=== PATIENT | female | born 1945 | race Caucasian/White ===

== ENCOUNTER → 2016-04-26 | Outpatient (CLI) | payer MEDICARE | LOC: SP 13:05 | PROVIDERS: ATTEND Registered Nurse | DX: M25.561 Pain in right knee (principal) | CPT/HCPCS: 93971 ==

== ENCOUNTER → 2016-06-21 | Outpatient (CLI) | payer MEDICARE | LOC: RAD 06:38 | PROVIDERS: ATTEND Physician Assistant | DX: M25.561 Pain in right knee (principal) ==

== ENCOUNTER → 2016-11-08 | Outpatient (CLI) | payer MEDICARE ==
--- NOTE | 2016-11-08 17:14 | WOMENS IMAGING REPORT ---
EXAM DESCRIPTION: BILAT SCREENING MAMMO W/CAD COMPLETED DATE/TIME: 11/08/2016 1:37 pm REASON FOR STUDY: ROUTINE SCREENING; Z12.31 Z12.31 ENCNTR SCREEN MAMMOGRAM FOR MALIGNANT NEOPLASM O F GT COMPARISON: 2010 to 2015 TECHNIQUE: Standard craniocaudal and mediolateral oblique views of each breast recorded using [employer] acquisition. LIMITATIONS: None. FINDINGS: No masses, calcifications or architectural distortion. No areas of suspicion. Read with the assistance of CAD. .[facility] - R2 Cenova Version 1.3 .[facility] - R2 Cenova Version 1.3 .[facility] - R2 Cenova Version 2.4 .[facility] – [place] - R2 Cenova Version 2.4 .[facility] - R2 [employer] Version 9.2 IMPRESSION: NORMAL MAMMOGRAM. BIRADS 1. BREAST DENSITY: b. There are scattered areas of fibroglandular density. BIRAD: 1 NEGATIVE RECOMMENDATION: ROUTINE SCREENING COMMENT: The patient has been notified of the results by letter per SA requirements. Additional no tification policies are in place for contacting patient with suspicious or incomplete findings. Quality ID #[id number]: The [employer] recommends an annual screening mammogram for women aged 40 years or over. This facility utilizes a reminder system to ensure that all patients receive reminder letters, and/or direct phone calls for appointments. This includes reminders for routine scr eening mammograms, diagnostic mammograms, or other Breast Imaging Interventions when appropriate. Th is patient will be placed in the appropriate reminder system. The [employer] (ACR) has developed recommendations for screening MRI of the breast s in certain patient populations, to be used in conjunction with mammography. Breast MRI surveillanc e may be appropriate for women with more than 20% lifetime risk of developing breast cancer as deter mined by genetic testing, significant family history of the disease, or history of mantle radiation f or Hodgkins Disease. ACR Practice Guidelines 2008. TECHNICAL DOCUMENTATION: FINDING NUMBER: (1) ASSESSMENT: (1) JOB ID: [id number] [employer]- All Rights Reserved
== END ==
LOC: WI 13:26
PROVIDERS: ATTEND Registered Nurse
DX: Z12.31 Encounter for screening mammogram for malignant neoplasm of breast (principal)
CPT/HCPCS: 77067; G0202

== ENCOUNTER 2017-04-09 17:24 | Emergency (ER) | payer MEDICARE ==
--- NOTE | 2017-04-09 18:26 | ER Document Report ---
ED GI/ - General Stated Complaint: POSSIBLE ALLERGIC REACTION Mode of Arrival: Stretcher Information source: Patient, Relative TRAVEL OUTSIDE OF THE [place] IN LAST 30 DAYS: No - HPI Notes: 04/10/17 01:07 71-year-old lady with past medical history of Parkinson's, anemia who presented today for evaluation of nausea, vomiting as well as diarrhea that started this morning. She had multiple episodes of emesis, nonbloody, nonbilious. Patient also has multiple episodes of watery diarrhea associated with her symptoms. Upon arrival patient appears to be tachycardic and slightly hypotensive. Patient denies any chest pain, shortness of breath or palpitations. No prior history of abdominal surgeries. - Related Data Allergies/Adverse Reactions: No Known Allergies Allergy (Unverified 04/22/14 13:48) Past Medical History - Social History Smoking Status: Unknown if Ever Smoked Family History: Reviewed & Not Pertinent - Past Medical History Cardiac Medical History: Reports: Hx DVT - Right lower extremity, Hx Hypercholesterolemia, Hx Hypertension Denies: Hx Congestive Heart Failure, Hx Heart Attack, Hx Pulmonary Embolism Pulmonary Medical History: Denies: Hx Asthma, Hx COPD, Hx Sleep Apnea Neurological Medical History: Denies: Hx Seizures Endocrine Medical History: Denies: Hx Diabetes Mellitus Type 1, Hx Diabetes Mellitus Type 2, Hx Hyperthyroidism, Hx Hypothyroidism GI Medical History: Reports: Hx Gastroesophageal Reflux Disease - Mild. Denies : Hx Cirrhosis, Hx Hepatitis Musculoskeltal Medical History: Reports Hx Arthritis Psychiatric Medical History: Denies: Hx Depression Infectious Medical History: Denies: Hx Hepatitis Past Surgical History: Reports: Hx Cholecystectomy, Hx Hysterectomy, Hx Tonsillectomy - Immunizations Hx Diphtheria, Pertussis, Tetanus Vaccination: Yes Review of Systems - Review of Systems Notes: REVIEW OF SYSTEMS: CONSTITUTIONAL: -fevers, -chills EENT: -eye pain, -difficulty swallowing, -nasal congestion CARDIOVASCULAR: -chest pain, -syncope. RESPIRATORY: -cough, -SOB GASTROINTESTINAL: -abdominal pain, + nausea, +vomiting, +diarrhea GENITOURINARY: -dysuria, -hematuria MUSCULOSKELETAL: -back pain, -neck pain SKIN: -rash or skin lesions. HEMATOLOGIC: -easy bruising or bleeding. LYMPHATIC: -swollen, enlarged glands. NEUROLOGICAL: -altered mental status or loss of consciousness, -headache, - neurologic symptoms PSYCHIATRIC: -anxiety, -depression. ALL OTHER SYSTEMS REVIEWED AND NEGATIVE. Physical Exam - Vital signs Vitals: Temp Pulse Resp BP Pulse Ox 97.9 F 82 18 80/55 L 95 04/09/17 18:09 04/09/17 18:09 04/09/17 18:09 04/09/17 18:09 04/09/17 18:09 - Notes Notes: Reviewed vital signs and nursing note as charted by RN. CONSTITUTIONAL: Alert and orientedand responds appropriately to questions HEAD: Normocephalic; atraumatic EYES: PERRL; Conjunctivae clear, sclerae non-icteric ENT: normal nose; no rhinorrhea; dry mucous membranes; pharynx without lesions noted NECK: Supple without meningismus; non-tender; no cervical lymphadenopathy, no masses CARD: Tachycardia no murmurs, no clicks, no rubs, no gallops; symmetric distal pulses RESP: Normal chest excursion without splinting or tachypnea; breath sounds clear and equal bilaterally ABD/GI: Normal bowel sounds; non-distended; soft, BACK: The back appears normal and is non-tender to palpation EXT: Normal ROM in all joints; non-tender to palpation; no cyanosis, no effusions, no edema SKIN: Normal color for age and race; warm; dry; good turgor; capillary refill < 2 seconds; no acute lesions noted NEURO: .Cranial nerves 3-12 intact. Motor strength 5/5 bilaterally. Sensation intact to touch bilaterally. No pronator drift. Patient has parkinsonian features PSYCH: The patient's mood and manner are appropriate. Grooming and personal hygiene are appropriate. Course - Re-evaluation Re-evalutation: 71-year-old lady with history of Parkinson's presented today for evaluation of nausea, vomiting, diarrhea Differential diagnoses includes dehydration, electrolyte abnormalities, acute kidney injury, intra-abdominal infection, small bowel obstruction Will obtain basic lab work including CBC, CMP, urinalysis We will start patient on IV fluids We will give patient pain control with hydromorphone, nausea control Zofran Reassess patient 04/09/17 22:22 Patient is improving Noted acute kidney injury today as well as worsening anemia We will continue with IV fluids Patient also has leukocytosis, will obtain CT scan to rule out intra-abdominal infection versus obstruction Reassess patient 04/10/17 01:09 Patient feels much better, tachycardia has improved Patient noted to have anemia that has been getting slightly worse, patient's hemoglobin is 7.5, patient does not need transfusion at present time CT scan without any obstruction or infection Discussed results of imaging, lab work and urinalysis with patient and family, agree with disposition today, close follow-up with primary care doctor for reassessment of her symptoms Family agree with disposition today - Vital Signs Vital signs: Temp Pulse Resp BP Pulse Ox 97.9 F 82 22 H 125/73 96 04/09/17 18:09 04/09/17 18:09 04/09/17 23:07 04/09/17 23:07 04/09/17 23:07 - Laboratory Result Diagrams: 04/09/17 20:32 04/09/17 19:45 Laboratory results interpreted by me: 04/09/17 04/09/17 19:45 20:32 WBC 13.8 H RBC 2.97 L Hgb 7.5 L Hct 23.5 L MCV 79 L MCH 25.3 L RDW 17.0 H Seg Neutrophils % 81.3 H Lymphocytes % 12.8 L Absolute Neutrophils 11.2 H BUN 22 H Creatinine 1.37 H Est GFR ( Amer) 46 L Est GFR (Non-Af Amer) 38 L Direct Bilirubin 0.6 H ALT 7 L - Diagnostic Test Radiology reviewed: Image reviewed - EXAM DESCRIPTION: CT ABD/PELVIS NO ORAL OR IV CLINICAL HISTORY: 71 years Female, vomiting, abdominal pain COMPARISON: 3.2.15, report only. MRI, abdomen,3.2.15, report only. TECHNIQUE : No contrast. Coronal and sagittal reformat. This exam was performed according to our departmental dose-optimization program, which includes automated exposure control, adjustment of the mA and/or kV according to patient size and/or use of iterative reconstruction technique. FINDINGS: No acute findings. No free fluid. 3.9 cm hiatal hernia. Small bibasilar dependent atelectasis. Colonic diverticulosis. 3.4 cm right adrenal adenoma, noncontrast CT density 12 Hounsfield units. Small left inguinal fat only hernia. 2 cm umbilical fat only hernia. Cholecystectomy clips. 1.5 cm in sclerotic lesion of the right iliac wing and 1.1 cm sclerotic lesion of the left superior pubic ramus, likely enostosis. Unenhanced inferior chest, intra -abdominal/intrapelvic structures, and musculoskeleton appear otherwise grossly intact. Impression: No acute findings. Dictated by: BRIAN BALL MD [id number] CC: KELLY WALSH MD Critical Care Note - Critical Care Note Total time excluding time spent on procedures (mins): 35 Comments: Critical Care Time: 35 minutes Critical care provider statement: Critical care time was exclusive of: Separately billable procedures and treating other patients and teaching time Critical care was time spent personally by me on the following activities: Blood draw for specimens, development of treatment plan with patient or surrogate, evaluation of patient's response to treatment, examination of patient , obtaining history from patient or surrogate, ordering and performing treatments and interventions, ordering and review of laboratory studies, ordering and review of radiographic studies, pulse oximetry, re-evaluation of patient's condition and review of old charts I assumed direction of critical care for this patient from another provider in my specialty: no Discharge - Discharge Clinical Impression: JENNIFER (acute kidney injury), Dehydration, Nausea and vomiting, Diarrhea, Anemia Condition: Stable Disposition: HOME, SELF-CARE Instructions: Diarrhea, Nonspecific ([facility]), Vomiting ([facility]), Anemia ([facility]) Additional Instructions: You have been diagnosed today with nausea, vomiting as well as diarrhea Please take medications as prescribed Please follow-up with your doctor to recheck your blood counts, you have been noted to have anemia today Please come back if there worsening abdominal pain, nausea vomiting or diarrhea Prescriptions: Loperamide HCl [Loperamide] 2 mg PO Q4 #30 capsule Ondansetron [Zofran Odt 4 mg Tablet] 1 - 2 tab PO Q4H PRN #15 tab.rapdis PRN Reason: For Nausea/Vomiting Referrals: ROBB MILLARD MD [Primary Care Provider] - Follow up as needed
[2017-04-09] MEDS ORDERED: ONDANSETRON HCL INJ/PF 4 MG/2 ML SDV IV ONE (18:28)
[2017-04-09] MEDS ORDERED: MORPHINE SULFATE 10 MG/ML INJ IV ONE (18:28)
[2017-04-09] MEDS: NORMAL SALINE 1000 ML 1,000 ML IV PRN ×2 (19:54→20:28)
[2017-04-09] MEDS ORDERED: HYDROMORPHONE HCL INJ/PF 2 MG/ML AMPULE IV ONE (20:16)
[2017-04-09 20:30] LABS: ALANINE AMINOTRANSFERASE 7 U/L (9-52); ALBUMIN 3.8 g/dL (3.5-5.0); ALKALINE PHOSPHATASE 106 U/L (38-126); ANION GAP 10 (5-19); ASPARTATE AMINO TRANSFERASE 32 U/L (14-36); BILIRUBIN,DIRECT 0.6 mg/dL (0.0-0.4); BILIRUBIN,TOTAL 0.8 mg/dL (0.2-1.3); BLOOD UREA NITROGEN 22 mg/dL (7-20); CALCIUM 8.9 mg/dL (8.4-10.2); CARBON DIOXIDE 25 mmol/L (22-30); CHLORIDE 104 mmol/L (98-107); GLUCOSE 102 mg/dL (75-110); LIPASE 84.5 U/L (23-300); POTASSIUM 4.1 mmol/L (3.6-5.0); SODIUM 139.1 mmol/L (137-145); TOTAL PROTEIN 6.8 g/dL (6.3-8.2)
[2017-04-09 20:53] LABS: ABSOLUTE LYMPHOCYTES (AUTO) 1.8 10^3/uL (0.5-4.7); ABSOLUTE MONOCYTES (AUTO) 0.8 10^3/uL (0.1-1.4); ABSOLUTE NEUT (AUTO) 11.2 10^3/uL (1.7-8.2); BASOPHILS % (AUTO) 0.3 % (0-2); EOSINOPHILS % (AUTO) 0.1 % (0-6); HEMATOCRIT 23.5 % (36.0-47.0); LYMPHOCYTES % (AUTO) 12.8 % (13-45); MEAN CORPUSCULAR HEMOGLOBIN 25.3 pg (27.0-33.4); MEAN CORPUSCULAR VOLUME 79 fl (80-97); MONOCYTES % (AUTO) 5.5 % (3-13); PLATELET COUNT 287 10^3/uL (150-450); RED BLOOD COUNT 2.97 10^6/uL (3.72-5.28); SEGMENTED NEUTROPHILS % (AUTO) 81.3 % (42-78); TOTAL CELLS COUNTED % (AUTO) 100 %; WHITE BLOOD COUNT 13.8 10^3/uL (4.0-10.5)
[2017-04-09 21:05] LABS: HEMOGLOBIN 7.5 g/dL (12.0-15.5)
--- NOTE | 2017-04-10 00:21 | RADIOLOGY REPORT (SQ) ---
EXAM DESCRIPTION: CT ABD/PELVIS NO ORAL OR IV CLINICAL HISTORY: 71 years Female, vomiting, abdominal pain COMPARISON: 3.04.07, report only. MRI, abdomen,3.04.07, report only. TECHNIQUE: No contrast. Coronal and sagittal reformat. This exam was performed according to our departmental dose-optimization program, which includes automated exposure control, adjustment of the mA and/or kV according to patient size and/or use of iterative reconstruction technique. FINDINGS: No acute findings. No free fluid. 3.9 cm hiatal hernia. Small bibasilar dependent atelectasis. Colonic diverticulosis. 3.4 cm right adrenal adenoma, noncontrast CT density 12 Hounsfield units. Small left inguinal fat only hernia. 2 cm umbilical fat only hernia. Cholecystectomy clips. 1.5 cm in sclerotic lesion of the right iliac wing and 1.1 cm sclerotic lesion of the left superior pubic ramus, likely enostosis. Unenhanced inferior chest, intra-abdominal/intrapelvic structures, and musculoskeleton appear otherwise grossly intact. Impression: No acute findings.
[2017-04-10 01:31] VITALS: BP 122/64
== END 2017-04-10 01:31 | disposition home or self-care (01) ==
LOC: ER 17:24
DX: N17.9 Acute kidney failure, unspecified (principal); E86.0 Dehydration; D64.9 Anemia, unspecified; R11.2 Nausea with vomiting, unspecified; R19.7 Diarrhea, unspecified; E78.00 Pure hypercholesterolemia, unspecified; I10 Essential (primary) hypertension; Z86.718 Personal history of other venous thrombosis and embolism; Z90.49 Acquired absence of other specified parts of digestive tract; Z90.710 Acquired absence of both cervix and uterus
CPT/HCPCS: 99291; 96361; 96374; 96375; 36415; 83690; 85025; 80053; 74176; J1170; J2405; J7030

== ENCOUNTER 2017-07-10 04:10 | Emergency (ER) | payer MEDICARE ==
[2017-07-10] MEDS ORDERED: LORAZEPAM INJ 2 MG/1 ML VIAL IV ONE (06:14)
[2017-07-10 06:21] LABS: ABSOLUTE BASOPHILS # (AUTO) 0.1 10^3/uL (0.0-0.2); ABSOLUTE EOSINOPHILS # (AUTO) 0.1 10^3/uL (0.0-0.6); ABSOLUTE LYMPHOCYTES (AUTO) 2.2 10^3/uL (0.5-4.7); ABSOLUTE MONOCYTES (AUTO) 0.6 10^3/uL (0.1-1.4); ABSOLUTE NEUT (AUTO) 6.8 10^3/uL (1.7-8.2); BASOPHILS % (AUTO) 0.6 % (0-2); EOSINOPHILS % (AUTO) 0.8 % (0-6); HEMOGLOBIN 10.1 g/dL (12.0-15.5); LYMPHOCYTES % (AUTO) 22.8 % (13-45); MEAN CORPUSCULAR HEMOGLOBIN 28.2 pg (27.0-33.4); MEAN CORPUSCULAR HGB CONC 33.5 g/dL (32.0-36.0); MEAN CORPUSCULAR VOLUME 84 fl (80-97); MONOCYTES % (AUTO) 5.7 % (3-13); PLATELET COUNT 247 10^3/uL (150-450); RED BLOOD COUNT 3.56 10^6/uL (3.72-5.28); RED CELL DISTRIBUTION WIDTH 19.4 % (11.5-14.0); SEGMENTED NEUTROPHILS % (AUTO) 70.1 % (42-78); TOTAL CELLS COUNTED % (AUTO) 100 %; WHITE BLOOD COUNT 9.7 10^3/uL (4.0-10.5)
--- NOTE | 2017-07-10 06:22 | ER Document Report ---
ED Dizziness/Weakness - General Mode of Arrival: Medic Information source: Patient TRAVEL OUTSIDE OF THE [place] IN LAST 30 DAYS: No <CARROLL NI - Last Filed: 07/10/17 06:24> <JIMMIE MENDEZ - Last Filed: 07/10/17 10:35> - General Chief Complaint: General Weakness Stated Complaint: GENERAL WEAKNESS Time Seen by Provider: 07/10/17 06:03 Notes: Patient is a 79-year-old female with a pertinent medical history of Parkinson's disease and restless leg syndrome who presents to the emergency department today with complaints of generalized weakness with associated leg swelling. Patient states yesterday and at some point overnight last night she took extra Lasix to try to get the fluid off. Patient states this did remove quite a bit of fluid but she still has leg pain secondary to her restless leg syndrome. ( CARROLL NI) - Related Data Allergies/Adverse Reactions: No Known Allergies Allergy (Unverified 04/22/14 13:48) Past Medical History - General Information source: Patient - Social History Smoking Status: Never Smoker Cigarette use (# per day): No Chew tobacco use (# tins/day): No Frequency of alcohol use: None Drug Abuse: None Lives with: Spouse/Significant other Family History: Reviewed & Not Pertinent Patient has suicidal ideation: No Patient has homicidal ideation: No - Past Medical History Cardiac Medical History: Reports: Hx DVT - Right lower extremity, Hx Hypercholesterolemia, Hx Hypertension Neurological Medical History: Reports: Other - Parkinsons Disease GI Medical History: Reports: Hx Gastroesophageal Reflux Disease - Mild Musculoskeltal Medical History: Reports Hx Arthritis Psychiatric Medical History: Reports: Hx Depression Past Surgical History: Reports: Hx Cholecystectomy, Hx Hysterectomy, Hx Tonsillectomy - Immunizations Hx Diphtheria, Pertussis, Tetanus Vaccination: Yes <CARROLL NI - Last Filed: 07/10/17 06:24> Review of Systems - Review of Systems Constitutional: See HPI, Weakness - generalized EENT: No symptoms reported Cardiovascular: No symptoms reported Respiratory: No symptoms reported Gastrointestinal: No symptoms reported Genitourinary: No symptoms reported Female Genitourinary: No symptoms reported Musculoskeletal: See HPI, Leg swelling - bilateral Skin: No symptoms reported Hematologic/Lymphatic: No symptoms reported Neurological/Psychological: No symptoms reported -: Yes All other systems reviewed and negative <CARROLL NI - Last Filed: 07/10/17 06:24> Physical Exam <CARROLL NI - Last Filed: 07/10/17 06:24> <JIMMIE MENDEZ - Last Filed: 07/10/17 10:35> - Vital signs Vitals: Temp Pulse Resp BP Pulse Ox 97.4 F 88 18 154/61 H 99 07/10/17 04:26 07/10/17 04:26 07/10/17 04:26 07/10/17 04:26 07/10/17 04:26 - Notes Notes: Physical Exam: General: Alert, appears age appropriate. HEENT: Normocephalic. Atraumatic. PERRL. Extraocular movements intact. Oropharynx clear. Neck: Supple. Non-tender. Respiratory: No respiratory distress. Clear and equal breath sounds bilaterally. Cardiovascular: Regular rate and rhythm. Abdominal: Obese. Non-tender. No distension. Normal Bowel Sounds. Back: Non-tender. No deformity or step off. Extremities: Moves all four extremities. Upper extremities: Normal inspection. Normal ROM. Lower extremities: 1+ pitting edema at the feet bilaterally. Normal ROM. Neurological: Normal cognition. AAOx4. Normal speech. Psychological: Normal affect. Normal Mood. Skin: Warm. Dry. Normal color. (CARROLL NI) Course - Laboratory Result Diagrams: 07/10/17 06:10 07/10/17 06:10 <CARROLL NI - Last Filed: 07/10/17 06:24> - Laboratory Result Diagrams: 07/10/17 06:10 07/10/17 06:10 <JIMMIE MENDEZ - Last Filed: 07/10/17 10:35> - Vital Signs Vital signs: Temp Pulse Resp BP Pulse Ox 97.4 F 88 18 154/61 H 99 07/10/17 04:26 07/10/17 04:26 07/10/17 04:26 07/10/17 04:26 07/10/17 04:26 - Laboratory Laboratory results interpreted by me: 07/10/17 07/10/17 07/10/17 05:05 06:10 06:10 RBC 3.56 L Hgb 10.1 L Hct 30.0 L RDW 19.4 H Sodium 149.6 H Potassium 3.4 L Chloride 109 H Magnesium 1.0 L* Total Protein 6.1 L Urine Blood SMALL H Discharge <CARROLL NI - Last Filed: 07/10/17 06:24> <JIMMIE MENDEZ - Last Filed: 07/10/17 10:35> - Discharge Clinical Impression: Peripheral edema, Hypomagnesemia, Hypokalemia, Restless leg syndrome, Parkinsons disease Iron deficiency anemia Qualifiers: Iron deficiency anemia type: unspecified iron deficiency Qualified Code(s): D50.9 - Iron deficiency anemia, unspecified Condition: Stable Disposition: HOME, SELF-CARE Additional Instructions: Your magnesium levels and potassium levels were both low. This is probably partly due to the diuretics you are taking. The low magnesium can contribute to worsening weakness in your legs. Take the magnesium supplements as prescribed. Increase potassium in your diet, such as eating a banana every day. Elevate your feet as much as possible to help reduce the swelling. Follow-up with your doctor this week to recheck your magnesium and potassium levels. RETURN TO THE EMERGENCY ROOM IF ANY NEW OR WORSENING SYMPTOMS. Prescriptions: Magnesium Oxide [Mag-Ox 400 mg Tablet] 400 mg PO BID #10 tab Referrals: ROBB MILLARD MD [Primary Care Provider] - Follow up in 3-5 days Scribe Attestation: 07/10/17 07:16 I personally performed the services described in the documentation, reviewed and edited the documentation which was dictated to the scribe in my presence, and it accurately records my words and actions. (JIMMIE MENDEZ) Scribe Documentation - Scribe Written by Jhon:: Jhon Diallo, [id number] acting as scribe for :: Amado <CARROLL NI - Last Filed: 07/10/17 06:24>
[2017-07-10 06:24] LABS: APPEARANCE,URINE CLEAR; BILIRUBIN,URINE NEGATIVE (NEGATIVE); COLOR,URINE STRAW; GLUCOSE, URINE NEGATIVE (NEGATIVE); KETONES,URINE NEGATIVE (NEGATIVE); LEUKOCYTE ESTERASE,URINE NEGATIVE (NEGATIVE); NITRITE,URINE NEGATIVE (NEGATIVE); PROTEIN,URINE NEGATIVE (NEGATIVE); URINE SPECIFIC GRAVITY 1.008; UROBILINOGEN,URINE NEGATIVE mg/dL (<2.0)
[2017-07-10 06:48] LABS: ALANINE AMINOTRANSFERASE 20 U/L (9-52); ALBUMIN 3.6 g/dL (3.5-5.0); ALKALINE PHOSPHATASE 88 U/L (38-126); ANION GAP 15 (5-19); ASPARTATE AMINO TRANSFERASE 18 U/L (14-36); BILIRUBIN,DIRECT 0.2 mg/dL (0.0-0.4); BILIRUBIN,TOTAL 0.5 mg/dL (0.2-1.3); BLOOD UREA NITROGEN 19 mg/dL (7-20); CALCIUM 9.6 mg/dL (8.4-10.2); CARBON DIOXIDE 26 mmol/L (22-30); CHLORIDE 109 mmol/L (98-107); GLUCOSE 99 mg/dL (75-110); POTASSIUM 3.4 mmol/L (3.6-5.0); SODIUM 149.6 mmol/L (137-145); TOTAL PROTEIN 6.1 g/dL (6.3-8.2)
[2017-07-10] MEDS ORDERED: MAGNESIUM SULFATE INJ 8 MEQ/2 ML IV ONE (07:00)
[2017-07-10] MEDS ORDERED: POTASSIUM CHLORIDE 20 MEQ/15 ML UDCUP PO ONE (07:01)
[2017-07-10 11:11] VITALS: BP 104/69
== END 2017-07-10 10:50 | disposition home or self-care (01) ==
LOC: ER 04:10
DX: R60.0 Localized edema (principal); E83.42 Hypomagnesemia; E87.6 Hypokalemia; G25.81 Restless legs syndrome; G20 Parkinson's disease; D50.9 Iron deficiency anemia, unspecified; R53.1 Weakness; M79.89 Other specified soft tissue disorders
CPT/HCPCS: 99285; 96374; 96375; 36415; 83735; 85025; 80053; 81001; J3475; J2060; A9270

== ENCOUNTER 2017-07-12 15:45 | Emergency (ER) | payer MEDICARE ==
[2017-07-12 16:10] LABS: ABSOLUTE EOSINOPHILS # (AUTO) 0.1 10^3/uL (0.0-0.6); ABSOLUTE LYMPHOCYTES (AUTO) 2.6 10^3/uL (0.5-4.7); ABSOLUTE MONOCYTES (AUTO) 0.7 10^3/uL (0.1-1.4); ABSOLUTE NEUT (AUTO) 5.4 10^3/uL (1.7-8.2); BASOPHILS % (AUTO) 0.4 % (0-2); HEMATOCRIT 30.9 % (36.0-47.0); HEMOGLOBIN 10.2 g/dL (12.0-15.5); LYMPHOCYTES % (AUTO) 29.6 % (13-45); MEAN CORPUSCULAR HEMOGLOBIN 28.2 pg (27.0-33.4); MEAN CORPUSCULAR HGB CONC 33.1 g/dL (32.0-36.0); MEAN CORPUSCULAR VOLUME 85 fl (80-97); MONOCYTES % (AUTO) 8.2 % (3-13); PLATELET COUNT 272 10^3/uL (150-450); RED BLOOD COUNT 3.63 10^6/uL (3.72-5.28); RED CELL DISTRIBUTION WIDTH 18.8 % (11.5-14.0); SEGMENTED NEUTROPHILS % (AUTO) 60.8 % (42-78); TOTAL CELLS COUNTED % (AUTO) 100 %; WHITE BLOOD COUNT 8.9 10^3/uL (4.0-10.5)
[2017-07-12 17:00] LABS: APPEARANCE,URINE CLEAR; BILIRUBIN,URINE NEGATIVE (NEGATIVE); COLOR,URINE STRAW; GLUCOSE, URINE NEGATIVE (NEGATIVE); KETONES,URINE NEGATIVE (NEGATIVE); LEUKOCYTE ESTERASE,URINE NEGATIVE (NEGATIVE); NITRITE,URINE NEGATIVE (NEGATIVE); PROTEIN,URINE NEGATIVE (NEGATIVE); URINE SPECIFIC GRAVITY 1.009; UROBILINOGEN,URINE NEGATIVE mg/dL (<2.0)
[2017-07-12 17:42] LABS: ALANINE AMINOTRANSFERASE 16 U/L (9-52); ALBUMIN 3.5 g/dL (3.5-5.0); ALKALINE PHOSPHATASE 84 U/L (38-126); ANION GAP 9 (5-19); ASPARTATE AMINO TRANSFERASE 20 U/L (14-36); BILIRUBIN,DIRECT 0.3 mg/dL (0.0-0.4); BILIRUBIN,TOTAL 0.5 mg/dL (0.2-1.3); BLOOD UREA NITROGEN 11 mg/dL (7-20); CALCIUM 9.5 mg/dL (8.4-10.2); CARBON DIOXIDE 28 mmol/L (22-30); CHLORIDE 110 mmol/L (98-107); GLUCOSE 87 mg/dL (75-110); POTASSIUM 3.9 mmol/L (3.6-5.0); SODIUM 147.1 mmol/L (137-145); TOTAL PROTEIN 5.9 g/dL (6.3-8.2)
[2017-07-12] MEDS ORDERED: ONDANSETRON HCL INJ/PF 4 MG/2 ML SDV IV ONE (18:28)
[2017-07-12] MEDS ORDERED: MAGNESIUM SULFATE/D5W 1 GM/100 ML RTUPB IV ONE (18:29)
--- NOTE | 2017-07-12 18:37 | ER Document Report ---
ED General - General Chief Complaint: General Weakness Stated Complaint: WEAKNESS Time Seen by Provider: 07/12/17 17:55 Mode of Arrival: Ambulatory Information source: Patient, Relative Notes: 71-year-old female with Parkinson, restless leg syndrome presents with complaint of "feeling shaky inside". Patient states that earlier today after eating lunch she began to feel shaky. She states "I feel like my insides are moving". She also is complaining of worsening weakness and inability to walk. Patient states that she is usually able to get around with a walker but over the last few days this has become more difficult. She denies any falls. She was seen 2 days prior to arrival and found to have a significantly low magnesium level and low potassium. This was replenished and patient was placed on magnesium and potassium supplements. She states she has been taking these as prescribed. She currently denies headache, visual changes, chest pain, shortness of breath, abdominal pain. She does admit to nausea without vomiting. Her last bowel movement was yesterday. TRAVEL OUTSIDE OF THE [place] IN LAST 30 DAYS: No - HPI Onset: Just prior to arrival Onset/Duration: Constant Quality of pain: No pain Associated symptoms: Nausea Exacerbated by: Denies Relieved by: Denies Similar symptoms previously: Yes Recently seen / treated by doctor: Yes - Related Data Allergies/Adverse Reactions: No Known Allergies Allergy (Unverified 04/22/14 13:48) Past Medical History - General Information source: Patient, Relative, [facility] Records - Social History Smoking Status: Unknown if Ever Smoked Frequency of alcohol use: None Drug Abuse: None Lives with: Family Family History: Reviewed & Not Pertinent Patient has suicidal ideation: No Patient has homicidal ideation: No - Past Medical History Cardiac Medical History: Reports: Hx DVT - Right lower extremity, Hx Hypercholesterolemia, Hx Hypertension Denies: Hx Congestive Heart Failure, Hx Heart Attack Pulmonary Medical History: Denies: Hx Asthma, Hx COPD Neurological Medical History: Denies: Hx Seizures Endocrine Medical History: Denies: Hx Diabetes Mellitus Type 1, Hx Diabetes Mellitus Type 2 Renal/ Medical History: Denies: Hx Peritoneal Dialysis GI Medical History: Reports: Hx Gastroesophageal Reflux Disease - Mild Musculoskeltal Medical History: Reports Hx Arthritis Psychiatric Medical History: Reports: Hx Depression Past Surgical History: Reports: Hx Cholecystectomy, Hx Hysterectomy, Hx Tonsillectomy - Immunizations Hx Diphtheria, Pertussis, Tetanus Vaccination: Yes Review of Systems - Review of Systems Constitutional: Weakness. denies: Diaphoresis, Fever EENT: denies: Blurred vision Cardiovascular: denies: Chest pain, Palpitations, Heart racing, Dizziness Respiratory: denies: Short of breath Gastrointestinal: Nausea, Constipation. denies: Abdominal pain, Vomiting Genitourinary: Frequency. denies: Dysuria Female Genitourinary: No symptoms reported Musculoskeletal: Muscle pain, Leg swelling Skin: denies: Rash Hematologic/Lymphatic: denies: Easy bleeding Neurological/Psychological: Weakness. denies: Confusion, Lost consciousness -: Yes All other systems reviewed and negative Physical Exam - Vital signs Vitals: Temp Pulse Resp BP Pulse Ox 98.5 F 97 18 146/75 H 94 07/12/17 15:55 07/12/17 15:55 07/12/17 15:55 07/12/17 15:55 07/12/17 15:55 Interpretation: Normal, Hypertensive. No: Febrile - Notes Notes: PHYSICAL EXAMINATION: GENERAL: Well-appearing, well-nourished and in no acute distress. HEAD: Atraumatic, normocephalic. EYES: Pupils equal round and reactive to light, extraocular movements intact, conjunctiva are normal. ENT: Nares patent, oropharynx clear without exudates. Moist mucous membranes. NECK: Normal range of motion, supple without lymphadenopathy LUNGS: Breath sounds clear to auscultation bilaterally and equal. No wheezes rales or rhonchi. HEART: Regular rate and rhythm without murmurs ABDOMEN: Soft, nontender, nondistended abdomen. No guarding, no rebound. No masses appreciated. Female : deferred Musculoskeletal: Normal range of motion, no pitting 1+ edema bilateral. No cyanosis. NEUROLOGICAL: Tremulous. Cranial nerves grossly intact. Normal speech, normal gait. Normal sensory, motor exams PSYCH: Normal mood, normal affect. SKIN: Warm, Dry, normal turgor, no rashes or lesions noted. Course - Re-evaluation Re-evalutation: Laboratory 07/12/17 07/12/17 07/12/17 15:13 16:36 17:21 WBC 8.9 RBC 3.63 L Hgb 10.2 L Hct 30.9 L MCV 85 MCH 28.2 MCHC 33.1 RDW 18.8 H Plt Count 272 Seg Neutrophils % 60.8 Lymphocytes % 29.6 Monocytes % 8.2 Eosinophils % 1.0 Basophils % 0.4 Absolute Neutrophils 5.4 Absolute Lymphocytes 2.6 Absolute Monocytes 0.7 Absolute Eosinophils 0.1 Absolute Basophils 0.0 Sodium 147.1 H Potassium 3.9 Chloride 110 H Carbon Dioxide 28 Anion Gap 9 BUN 11 Creatinine 0.70 Est GFR ( Amer) > 60 Est GFR (Non-Af Amer) > 60 Glucose 87 Calcium 9.5 Phosphorus Magnesium Total Bilirubin 0.5 Direct Bilirubin 0.3 Neonat Total Bilirubin Not Reportable Neonat Direct Bilirubin Not Reportable Neonat Indirect Bili Not Reportable AST 20 ALT 16 Alkaline Phosphatase 84 Creatine Kinase CK-MB (CK-2) Troponin I Total Protein 5.9 L Albumin 3.5 Urine Color STRAW Urine Appearance CLEAR Urine pH 7.0 Ur Specific [place] 1.009 Urine Protein NEGATIVE Urine Glucose (UA) NEGATIVE Urine Ketones NEGATIVE Urine Blood SMALL H Urine Nitrite NEGATIVE Urine Bilirubin NEGATIVE Urine Urobilinogen NEGATIVE Ur Leukocyte Esterase NEGATIVE Urine WBC (Auto) 2 Urine RBC (Auto) 1 Urine Bacteria (Auto) TRACE Squamous Epi Cells Auto 2 Urine Mucus (Auto) RARE Urine Ascorbic Acid NEGATIVE 07/12/17 07/12/17 07/12/17 17:21 17:21 17:21 WBC RBC Hgb Hct MCV MCH MCHC RDW Plt Count Seg Neutrophils % Lymphocytes % Monocytes % Eosinophils % Basophils % Absolute Neutrophils Absolute Lymphocytes Absolute Monocytes Absolute Eosinophils Absolute Basophils Sodium Potassium Chloride Carbon Dioxide Anion Gap BUN Creatinine Est GFR ( Amer) Est GFR (Non-Af Amer) Glucose Calcium Phosphorus Magnesium 1.2 L* Total Bilirubin Direct Bilirubin Neonat Total Bilirubin Neonat Direct Bilirubin Neonat Indirect Bili AST ALT Alkaline Phosphatase Creatine Kinase 183 H CK-MB (CK-2) 3.46 Troponin I < 0.012 Total Protein Albumin Urine Color Urine Appearance Urine pH Ur Specific [place] Urine Protein Urine Glucose (UA) Urine Ketones Urine Blood Urine Nitrite Urine Bilirubin Urine Urobilinogen Ur Leukocyte Esterase Urine WBC (Auto) Urine RBC (Auto) Urine Bacteria (Auto) Squamous Epi Cells Auto Urine Mucus (Auto) Urine Ascorbic Acid 07/12/17 07/12/17 17:21 20:37 WBC RBC Hgb Hct MCV MCH MCHC RDW Plt Count Seg Neutrophils % Lymphocytes % Monocytes % Eosinophils % Basophils % Absolute Neutrophils Absolute Lymphocytes Absolute Monocytes Absolute Eosinophils Absolute Basophils Sodium Potassium Chloride Carbon Dioxide Anion Gap BUN Creatinine Est GFR ( Amer) Est GFR (Non-Af Amer) Glucose Calcium Phosphorus 4.0 Magnesium 1.8 Total Bilirubin Direct Bilirubin Neonat Total Bilirubin Neonat Direct Bilirubin Neonat Indirect Bili AST ALT Alkaline Phosphatase Creatine Kinase CK-MB (CK-2) Troponin I Total Protein Albumin Urine Color Urine Appearance Urine pH Ur Specific [place] Urine Protein Urine Glucose (UA) Urine Ketones Urine Blood Urine Nitrite Urine Bilirubin Urine Urobilinogen Ur Leukocyte Esterase Urine WBC (Auto) Urine RBC (Auto) Urine Bacteria (Auto) Squamous Epi Cells Auto Urine Mucus (Auto) Urine Ascorbic Acid 07/13/17 14:46 71-year-old female with Parkinson's presents for the second time with complaint of "feeling shaking inside". Patient was seen 2 days prior to arrival and found to have a low magnesium and potassium level. She was replenished at that time and sent home on supplements for both magnesium and potassium. Upon arrival vitals were reviewed and is afebrile, mildly hypertensive and not hypoxic. She is alert and oriented 3. Does not appear toxic or dehydrated. She is tremulous but does have a history of Parkinson's. Patient again found to have low magnesium which was replenished. Repeat magnesium levels were within normal limits. Patient also provided IV fluids. Suspect that magnesium levels are low secondary to diuretic use. Patient and family are concerned with weakness and difficulty walking. I did discuss admission with them with the goal of rehabilitation but patient and family are declining at this time. I did explain that the unsteady gait and weakness could be associated with low magnesium levels as well as Parkinson's. Patient has an upcoming appointment with her primary care physician. Patient provided the opportunity to ask questions, and express concerns. Discharge instructions discussed. Patient is agreeable with discharge home. Return indications explained and discussed with the patient who displays understanding. Patient encouraged to return to the emergency department immediately with any concerns. 07/13/17 14:47 07/13/17 14:49 - Vital Signs Vital signs: Temp Pulse Resp BP Pulse Ox 98.5 F 91 16 140/63 H 95 07/12/17 22:22 07/12/17 22:22 07/12/17 22:22 07/12/17 22:22 07/12/17 22:22 - Laboratory Result Diagrams: 07/12/17 15:13 07/12/17 17:21 Laboratory results interpreted by me: 07/12/17 07/12/17 07/12/17 15:13 16:36 17:21 RBC 3.63 L Hgb 10.2 L Hct 30.9 L RDW 18.8 H Sodium 147.1 H Chloride 110 H Magnesium Creatine Kinase Total Protein 5.9 L Urine Blood SMALL H 07/12/17 07/12/17 17:21 17:21 RBC Hgb Hct RDW Sodium Chloride Magnesium 1.2 L* Creatine Kinase 183 H Total Protein Urine Blood - EKG Interpretation by Me EKG shows normal: Sinus rhythm Rate: Normal Rhythm: NSR Discharge - Discharge Clinical Impression: Restless leg syndrome, Hypomagnesemia, Parkinsons disease Condition: Good Disposition: HOME, SELF-CARE Instructions: Parkinson's Disease ([facility]) Additional Instructions: Your laboratory testing showed that your magnesium was low again but your potassium was normal. You were administered magnesium and your repeat testing shows a normal level. I would continue the supplements she were provided but take them separately throughout the day with food. Drink plenty of fluids and follow-up with your primary care physician as already scheduled. Forms: Elevated Blood Pressure Referrals: ROBB MILLARD MD [Primary Care Provider] - 07/20/17
[2017-07-12 19:12] LABS: CREATINE KINASE MB 3.46 ng/mL (<4.55)
[2017-07-12 19:13] LABS: TROPONIN I < 0.012 ng/mL
[2017-07-12 22:25] VITALS: BP 140/63
--- NOTE | 2017-07-13 07:15 | EKG REPORT ---
SEVERITY:- OTHERWISE NORMAL ECG - SINUS RHYTHM BORDERLINE LEFT AXIS DEVIATION : Confirmed by: Saqib Younger MD 13-Jul-2017 07:14:38
== END 2017-07-12 22:22 | disposition home or self-care (01) ==
LOC: ER 15:45
DX: G25.81 Restless legs syndrome (principal); G20 Parkinson's disease; E83.42 Hypomagnesemia; R53.1 Weakness; R11.0 Nausea; E78.00 Pure hypercholesterolemia, unspecified; I10 Essential (primary) hypertension; Z86.718 Personal history of other venous thrombosis and embolism; Z90.49 Acquired absence of other specified parts of digestive tract; Z90.710 Acquired absence of both cervix and uterus
CPT/HCPCS: 93005; 99285; 96375; 96365; 36415; 82553; 82550; 83735; 84100; 85025; 80053; 81001; 84484; 93010; J3475; J2405

== ENCOUNTER 2017-07-17 12:17 | Emergency (ER) | payer MEDICARE ==
[2017-07-17] MEDS ORDERED: MORPHINE SULFATE 10 MG/ML INJ IM ONE (12:31)
--- NOTE | 2017-07-17 12:33 | ER Document Report ---
ED Medical Screen (RME) - General Chief Complaint: Urinary Problem Stated Complaint: BLADDER PROBLEM Time Seen by Provider: 07/17/17 12:26 Notes: RAPID MEDICAL EVALUATION DISCLOSURE I have seen this patient as part of a Rapid Medical Evaluation and, if applicable, placed any initially appropriate orders. The patient will be seen and fully evaluated, including a full history and physical exam, by a provider ( in Main ED or Fast Track) when a room becomes available. 71-year-old female here with complaints of dysuria hematuria suprapubic pain nausea ongoing for the past 1 week. She reports the symptoms have progressively worsened despite using Azo [id number] medication. She denies any fevers or chills. She talks about how she always gets urine infections whenever her magnesium is low. Per chart review, her last hypomagnesic episode revealed a magnesium of 1.2 EXAM CTAB RRR Mild to moderate suprapubic TTP TRAVEL OUTSIDE OF THE [place] IN LAST 30 DAYS: No - Related Data Allergies/Adverse Reactions: No Known Allergies Allergy (Verified 07/17/17 12:18) Past Medical History - Past Medical History Cardiac Medical History: Reports: Hx DVT - Right lower extremity, Hx Hypercholesterolemia, Hx Hypertension Denies: Hx Congestive Heart Failure, Hx Heart Attack Pulmonary Medical History: Denies: Hx Asthma, Hx COPD Neurological Medical History: Denies: Hx Seizures Endocrine Medical History: Denies: Hx Diabetes Mellitus Type 1, Hx Diabetes Mellitus Type 2 Renal/ Medical History: Denies: Hx Peritoneal Dialysis GI Medical History: Reports: Hx Gastroesophageal Reflux Disease - Mild Musculoskeltal Medical History: Reports Hx Arthritis Psychiatric Medical History: Reports: Hx Depression Past Surgical History: Reports: Hx Cholecystectomy, Hx Hysterectomy, Hx Tonsillectomy - Immunizations Hx Diphtheria, Pertussis, Tetanus Vaccination: Yes Physical Exam - Vital signs Vitals: Temp Pulse Resp BP Pulse Ox 97.9 F 90 18 140/67 H 94 07/17/17 12:23 07/17/17 12:23 07/17/17 12:23 07/17/17 12:23 07/17/17 12:23 Course - Vital Signs Vital signs: Temp Pulse Resp BP Pulse Ox 97.9 F 90 18 140/67 H 94 07/17/17 12:23 07/17/17 12:23 07/17/17 12:23 07/17/17 12:23 07/17/17 12:23
[2017-07-17] MEDS ORDERED: DICYCLOMINE HCL INJ 20 MG/2 ML AMPULE IM ONE (13:09)
--- NOTE | 2017-07-17 13:10 | ER Document Report ---
ED GI/ - General Chief Complaint: Urinary Problem Stated Complaint: BLADDER PROBLEM Time Seen by Provider: 07/17/17 12:26 Mode of Arrival: Ambulatory Notes: Chief complaint: 71-year-old female here with complaints of dysuria hematuria suprapubic pain nausea ongoing for the past 1 week. She reports the symptoms have progressively worsened despite using Azo [id number] medication. She denies any fevers or chills. She talks about how she always gets urine infections whenever her magnesium is low. her last hypomagnesic episode revealed a magnesium of 1.2. She is also constipated, took an enema yesterday but had only a few hardball stools. No fever chills or other constitutional symptoms History of complain:( obtained from----patient) Onset: Gradual last few days Duration: Last few days Severity: Moderate Quality: Dull Context: Constipated as well as history of kidney stones Exacerbating factor and relieving factors: None REVIEW OF SYSTEMS: CONSTITUTIONAL : Denies fever, chills, or sweats. Denies recent illness. EENT: Denies eye, ear, throat, or mouth pain or symptoms. Denies nasal or sinus congestion or discharge. Denies throat, tongue, or mouth swelling or difficulty swallowing. CARDIOVASCULAR: Denies chest pain. Denies palpitations or racing or irregular heart beat. Denies ankle edema. RESPIRATORY: Denies cough, cold, or chest congestion. Denies shortness of breath, difficulty breathing, or wheezing. GASTROINTESTINAL: Denies distention. Denies nausea, vomiting, or diarrhea. Denies blood in vomitus, stools, or per rectum. Denies black, tarry stools. GENITOURINARY: Denies difficulty urinating, painful urination, burning, frequency, blood in urine, or discharge. FEMALE GENITOURINARY: Denies vaginal bleeding, heavy or abnormal periods, irregular periods. Denies vaginal discharge or odor. MUSCULOSKELETAL: Denies back or neck pain or stiffness. Denies joint pain or swelling. SKIN: Denies rash, lesions or sores. HEMATOLOGIC : Denies easy bruising or bleeding. LYMPHATIC: Denies swollen, enlarged glands. NEUROLOGICAL: Denies confusion or altered mental status. Denies passing out or loss of consciousness. Denies dizziness or lightheadedness. Denies headache. Denies weakness or paralysis or loss of use of either side. Denies problems with gait or speech. Denies sensory loss, numbness, or tingling. Denies seizures. PSYCHIATRIC: Denies anxiety or stress. Denies depression, suicidal ideation, or homicidal ideation. ALL OTHER SYSTEMS REVIEWED AND NEGATIVE. PHYSICAL EXAMINATION: GENERAL: Well-appearing, well-nourished and mild to moderate acute distress. HEAD: Atraumatic, normocephalic. EYES: Pupils equal round and reactive to light, extraocular movements intact, conjunctiva are normal. ENT: Nares patent, oropharynx clear without exudates. Moist mucous membranes. NECK: Normal range of motion, supple without lymphadenopathy LUNGS: Breath sounds clear to auscultation bilaterally and equal. No wheezes rales or rhonchi. HEART: Regular rate and rhythm without murmurs ABDOMEN: Soft, tender over the suprapubic region, nondistended abdomen. No guarding, no rebound. No masses appreciated. Examination of genitals-deferred Musculoskeletal: Normal range of motion, no pitting or edema. No cyanosis. NEUROLOGICAL: Cranial nerves grossly intact. Normal speech, normal gait. Normal sensory, motor exams PSYCH: Normal mood, normal affect. SKIN: Warm, Dry, normal turgor, no rashes or lesions noted. Dictation was performed using [employer] voice recognition software TRAVEL OUTSIDE OF THE [place] IN LAST 30 DAYS: No - HPI Notes: 07/17/17 16:27 Dictated - Related Data Allergies/Adverse Reactions: No Known Allergies Allergy (Verified 07/17/17 12:18) Past Medical History - Social History Smoking Status: Never Smoker Chew tobacco use (# tins/day): No Frequency of alcohol use: None Drug Abuse: None Family History: Reviewed & Not Pertinent Patient has suicidal ideation: No Patient has homicidal ideation: No - Past Medical History Cardiac Medical History: Reports: Hx DVT - Right lower extremity, Hx Hypercholesterolemia, Hx Hypertension Denies: Hx Congestive Heart Failure, Hx Heart Attack Pulmonary Medical History: Denies: Hx Asthma, Hx COPD Neurological Medical History: Denies: Hx Seizures Endocrine Medical History: Denies: Hx Diabetes Mellitus Type 1, Hx Diabetes Mellitus Type 2 Renal/ Medical History: Denies: Hx Peritoneal Dialysis GI Medical History: Reports: Hx Gastroesophageal Reflux Disease - Mild Musculoskeltal Medical History: Reports Hx Arthritis Psychiatric Medical History: Reports: Hx Depression Past Surgical History: Reports: Hx Cholecystectomy, Hx Hysterectomy, Hx Tonsillectomy - Immunizations Hx Diphtheria, Pertussis, Tetanus Vaccination: Yes Review of Systems - Review of Systems Notes: Dictated Physical Exam - Vital signs Vitals: Temp Pulse Resp BP Pulse Ox 97.9 F 90 18 140/67 H 94 07/17/17 12:23 07/17/17 12:23 07/17/17 12:23 07/17/17 12:23 07/17/17 12:23 - Notes Notes: Dictated Course - Re-evaluation Re-evalutation: 07/17/17 16:28 Patient was given soapsuds enema with minimum results, subsequently discharged home given magnesium oxide - Vital Signs Vital signs: Temp Pulse Resp BP Pulse Ox 97.9 F 90 18 140/67 H 94 07/17/17 12:23 07/17/17 12:23 07/17/17 12:23 07/17/17 12:23 07/17/17 12:23 - Laboratory Result Diagrams: 07/17/17 12:50 07/17/17 12:50 Laboratory results interpreted by me: 07/17/17 07/17/17 07/17/17 12:50 12:50 13:22 WBC 10.7 H Hgb 11.4 L Hct 34.9 L RDW 18.6 H Sodium 146.4 H Carbon Dioxide 32 H Magnesium 1.1 L* Urine Nitrite POSITIVE H Urine Urobilinogen 4.0 H Discharge - Discharge Clinical Impression: Urinary tract infection Qualifiers: Urinary tract infection type: acute cystitis Hematuria presence: without hematuria Qualified Code(s): N30.00 - Acute cystitis without hematuria Constipation Qualifiers: Constipation type: slow transit constipation Qualified Code(s): K59.01 - Slow transit constipation Condition: Fair Instructions: Trimethoprim-Sulfa ([facility]), Urinary Tract Infection, Child ([facility]), Constipation ([facility]) Prescriptions: Lactulose 20 gm PO BID #120 ml Sulfamethoxazole/Trimethoprim [Bactrim Ds Tablet] 1 each PO BID #20 tablet Referrals: ROBB MILLARD MD [Primary Care Provider] - Follow up as needed
[2017-07-17] MEDS ORDERED: KETOROLAC TROMETHAMINE 60 MG/2 ML SDV IM ONE (13:11)
[2017-07-17 13:23] LABS: ALANINE AMINOTRANSFERASE 26 U/L (9-52); ALBUMIN 3.9 g/dL (3.5-5.0); ALKALINE PHOSPHATASE 90 U/L (38-126); ANION GAP 10 (5-19); ASPARTATE AMINO TRANSFERASE 25 U/L (14-36); BILIRUBIN,TOTAL 0.7 mg/dL (0.2-1.3); BLOOD UREA NITROGEN 15 mg/dL (7-20); CALCIUM 9.9 mg/dL (8.4-10.2); CARBON DIOXIDE 32 mmol/L (22-30); CHLORIDE 104 mmol/L (98-107); GLUCOSE 87 mg/dL (75-110); PHOSPHORUS 3.7 mg/dL (2.5-4.5); POTASSIUM 4.5 mmol/L (3.6-5.0); SODIUM 146.4 mmol/L (137-145); TOTAL PROTEIN 6.6 g/dL (6.3-8.2)
[2017-07-17 13:43] LABS: ABSOLUTE BASOPHILS # (AUTO) 0.1 10^3/uL (0.0-0.2); ABSOLUTE EOSINOPHILS # (AUTO) 0.1 10^3/uL (0.0-0.6); ABSOLUTE LYMPHOCYTES (AUTO) 2.9 10^3/uL (0.5-4.7); ABSOLUTE MONOCYTES (AUTO) 0.9 10^3/uL (0.1-1.4); ABSOLUTE NEUT (AUTO) 6.8 10^3/uL (1.7-8.2); BASOPHILS % (AUTO) 0.5 % (0-2); HEMATOCRIT 34.9 % (36.0-47.0); HEMOGLOBIN 11.4 g/dL (12.0-15.5); LYMPHOCYTES % (AUTO) 26.7 % (13-45); MEAN CORPUSCULAR HEMOGLOBIN 28.2 pg (27.0-33.4); MEAN CORPUSCULAR HGB CONC 32.8 g/dL (32.0-36.0); MEAN CORPUSCULAR VOLUME 86 fl (80-97); MONOCYTES % (AUTO) 8.2 % (3-13); PLATELET COUNT 303 10^3/uL (150-450); RED BLOOD COUNT 4.06 10^6/uL (3.72-5.28); RED CELL DISTRIBUTION WIDTH 18.6 % (11.5-14.0); SEGMENTED NEUTROPHILS % (AUTO) 63.6 % (42-78); TOTAL CELLS COUNTED % (AUTO) 100 %; WHITE BLOOD COUNT 10.7 10^3/uL (4.0-10.5)
[2017-07-17 13:47] LABS: APPEARANCE,URINE CLEAR; BILIRUBIN,URINE NEGATIVE (NEGATIVE); COLOR,URINE AMBER; GLUCOSE, URINE NEGATIVE (NEGATIVE); KETONES,URINE NEGATIVE (NEGATIVE); LEUKOCYTE ESTERASE,URINE NEGATIVE (NEGATIVE); NITRITE,URINE POSITIVE (NEGATIVE); PROTEIN,URINE NEGATIVE (NEGATIVE); URINE SPECIFIC GRAVITY 1.003
--- NOTE | 2017-07-17 14:21 | RADIOLOGY REPORT (SQ) ---
EXAM DESCRIPTION: KUB/ABDOMEN (SINGLE VIEW) COMPLETED DATE/TIME: 07/17/2017 2:06 pm REASON FOR STUDY: Abdominal pain COMPARISON: None. NUMBER OF VIEWS: One view. TECHNIQUE: Supine radiographic image of the abdomen acquired. LIMITATIONS: None. FINDINGS: BOWEL GAS PATTERN: Normal bowel gas pattern. No dilated loops. CALCIFICATIONS: No suspicious calcifications. SOFT TISSUES: No gross mass or suggestion of organomegaly. HARDWARE: Clips right upper quadrant. BONES: No bone lesions or fracture. OTHER: No other significant finding. IMPRESSION: NO RADIOGRAPHIC EVIDENCE FOR ACUTE ABDOMINAL DISEASE. Reading location - IP/workstation name: [email or web address]
[2017-07-17] MEDS ORDERED: MINERAL OIL 30 ML UDCUP PR ONE (15:26)
[2017-07-17] MEDS ORDERED: SULFAMETHOXAZOLE/TRIMETHOPRIM 800-160 MG TABLET PO ONE (15:26)
[2017-07-17] MEDS ORDERED: MAGNESIUM OXIDE 400 MG TABLET PO ONE (16:24)
[2017-07-17 17:01] VITALS: BP 145/64
== END 2017-07-17 16:59 | disposition home or self-care (01) ==
LOC: ER 12:17
DX: N30.00 Acute cystitis without hematuria (principal); K59.01 Slow transit constipation; R10.2 Pelvic and perineal pain; R11.0 Nausea; E78.00 Pure hypercholesterolemia, unspecified; I10 Essential (primary) hypertension; Z87.442 Personal history of urinary calculi; Z86.711 Personal history of pulmonary embolism; Z90.49 Acquired absence of other specified parts of digestive tract; Z90.710 Acquired absence of both cervix and uterus
CPT/HCPCS: 99284; 96372; 36415; 87086; 83735; 84100; 85025; 80053; 81001; 74018; A9270 ×2; J0500; J1885; J3490; J2270

== ENCOUNTER 2017-07-24 08:15 | Emergency (ER) | payer MEDICARE ==
--- NOTE | 2017-07-24 08:49 | ER Document Report ---
ED General - General Chief Complaint: Trouble Voiding Stated Complaint: UNABLE TO VOID Time Seen by Provider: 07/24/17 08:49 Mode of Arrival: Ambulatory Information source: Patient Notes: 71-year-old female complaining of extreme abdominal pain and inability to void. When she tried to urinate 2 hours ago only a few drops came out. She was in the emergency department on 07-18 for similar symptoms she had a positive nitrite on urinalysis but the urine culture was negative. She also stated she was constipated at the time. No fever or chills. She is rolling around in bed very uncomfortable and rubbing her lower abdomen. TRAVEL OUTSIDE OF THE [place] IN LAST 30 DAYS: No - Related Data Allergies/Adverse Reactions: No Known Allergies Allergy (Verified 07/24/17 08:18) Past Medical History - General Information source: Patient, Relative - spouse - Social History Smoking Status: Never Smoker Frequency of alcohol use: None Drug Abuse: None Lives with: Spouse/Significant other Family History: Reviewed & Not Pertinent - Past Medical History Cardiac Medical History: Reports: Hx DVT - Right lower extremity, Hx Hypercholesterolemia, Hx Hypertension Renal/ Medical History: Denies: Hx Peritoneal Dialysis GI Medical History: Reports: Hx Gastroesophageal Reflux Disease - Mild Musculoskeltal Medical History: Reports Hx Arthritis Psychiatric Medical History: Reports: Hx Depression Past Surgical History: Reports: Hx Cholecystectomy, Hx Hysterectomy, Hx Tonsillectomy - Immunizations Hx Diphtheria, Pertussis, Tetanus Vaccination: Yes Review of Systems - Review of Systems Constitutional: No symptoms reported EENT: No symptoms reported Cardiovascular: No symptoms reported Respiratory: No symptoms reported Gastrointestinal: See HPI Genitourinary: See HPI Female Genitourinary: No symptoms reported Musculoskeletal: No symptoms reported Skin: No symptoms reported Hematologic/Lymphatic: No symptoms reported Neurological/Psychological: No symptoms reported Physical Exam - Vital signs Vitals: Temp Pulse Resp BP Pulse Ox 97.9 F 94 26 H 149/69 H 96 07/24/17 08:20 07/24/17 08:20 07/24/17 08:20 07/24/17 08:20 07/24/17 08:20 Interpretation: Normal - General General appearance: Appears well, Alert, Anxious In distress: None - HEENT Head: Normocephalic, Atraumatic Eyes: Normal Conjunctiva: Normal Pupils: PERRL Mucous membranes: Normal Pharynx: Normal Neck: Supple. No: Lymphadenopathy - Respiratory Respiratory status: No respiratory distress Chest status: Nontender Breath sounds: Normal Chest palpation: Normal - Cardiovascular Rhythm: Regular Heart sounds: Normal auscultation Murmur: No - Abdominal Inspection: Normal Distension: No distension Bowel sounds: Normal Tenderness: Nontender. No: Tender Organomegaly: No organomegaly - Rectal Tenderness: No Notes: no stool in vault - Back Back: Normal, Nontender. No: CVA tenderness - Extremities General upper extremity: Normal inspection, Nontender, Normal color, Normal ROM , Normal temperature General lower extremity: Normal inspection, Nontender, Normal color, Normal ROM , Normal temperature, Normal weight bearing. No: Nai's sign - Neurological Neuro grossly intact: Yes Cognition: Normal Orientation: AAOx4 Vinton Coma Scale Eye Opening: Spontaneous Netta Coma Scale Verbal: Oriented Netta Coma Scale Motor: Obeys Commands Vinton Coma Scale Total: 15 Speech: Normal Motor strength normal: LUE, RUE, LLE, RLE Sensory: Normal - Psychological Associated symptoms: Normal affect, Normal mood, Anxious, Restlessness - Skin Skin Temperature: Warm Skin Moisture: Dry Skin Color: Normal Skin irregularity: negative: Rash Course - Re-evaluation Re-evalutation: 07/24/17 09:24 Silveira catheter has been placed and only 70-80 mL's were recovered. She is able to stop the writhing but she says the writhing in the bed is due to pain. She does have a history of Parkinson's. 07/24/17 12:[address] scan are negative except for degenerative changes in the pelvis. I had the patient walk in the room. She is tearful saying "I knew you would send me home still in pain". She states the pain starts in her low back and radiates around to the front. She only took 1 dose of Tylenol yesterday I encouraged her to take up to 4000 mg per day for pain. She can follow-up with her primary care doctor and giving her copies of everything. I suspect that this pain that she is feeling low in the pelvis is from her back. The Silveira was removed. She did not have urinary retention. 07/24/17 12:00 - Vital Signs Vital signs: Temp Pulse Resp BP Pulse Ox 97.6 F 91 26 H 138/63 H 100 07/24/17 12:09 07/24/17 12:09 07/24/17 08:20 07/24/17 12:09 07/24/17 12:09 - Laboratory Result Diagrams: 07/24/17 09:55 07/24/17 09:55 Laboratory results interpreted by me: 07/24/17 07/24/17 09:55 09:55 Hgb 11.6 L Hct 35.2 L RDW 17.9 H Sodium 136.8 L Discharge - Discharge Clinical Impression: Pelvic pain Chronic low back pain Qualifiers: Back pain laterality: midline Sciatica presence: without sciatica Qualified Code(s): M54.5 - Low back pain Condition: Good Disposition: HOME, SELF-CARE Instructions: Acetaminophen, Low Back Pain ([facility]), Pelvic Pain ([facility]), Warm Packs ([facility]) Additional Instructions: Warm compress or heating pad to her low back and the lower abdomen Tylenol up to 4000 mg per day See your doctor tomorrow I have given you copies of everything to give to her. Return to the emergency room if symptoms get worse Referrals: ROBB MILLARD MD [Primary Care Provider] - Follow up tomorrow
[2017-07-24] MEDS ORDERED: MORPHINE SULFATE 10 MG/ML INJ IV ONE (09:31)
[2017-07-24] MEDS ORDERED: LORAZEPAM INJ 2 MG/1 ML VIAL IV ONE (09:31)
[2017-07-24] MEDS ORDERED: DIPHENHYDRAMINE HCL 50 MG/ML VIAL IV ONE (09:41)
--- NOTE | 2017-07-24 09:50 | RADIOLOGY REPORT (SQ) ---
EXAM DESCRIPTION: KUB/ABDOMEN (SINGLE VIEW) COMPLETED DATE/TIME: 07/24/2017 9:36 am REASON FOR STUDY: unable to void COMPARISON: KUB from 07/17/[address] from 04/09/2017. NUMBER OF VIEWS: One view. TECHNIQUE: Supine radiographic image of the abdomen acquired. LIMITATIONS: None. FINDINGS: BOWEL GAS PATTERN: Normal bowel gas pattern. No dilated loops. CALCIFICATIONS: No suspicious calcifications. SOFT TISSUES: No gross mass or suggestion of organomegaly. HARDWARE: Cholecystectomy clips. BONES: No acute fracture. No worrisome bone lesions. OTHER: No other significant finding. IMPRESSION: NO RADIOGRAPHIC EVIDENCE FOR ACUTE ABDOMINAL DISEASE. NO SIGNIFICANT CHANGE FROM PRIOR KUB OR PRIOR CT. TECHNICAL DOCUMENTATION: JOB ID: [id number] [employer]- All Rights Reserved Reading location - IP/workstation name: [email or web address]
[2017-07-24 10:13] LABS: ABSOLUTE BASOPHILS # (AUTO) 0.1 10^3/uL (0.0-0.2); ABSOLUTE EOSINOPHILS # (AUTO) 0.1 10^3/uL (0.0-0.6); ABSOLUTE LYMPHOCYTES (AUTO) 2.5 10^3/uL (0.5-4.7); ABSOLUTE MONOCYTES (AUTO) 0.7 10^3/uL (0.1-1.4); ABSOLUTE NEUT (AUTO) 3.9 10^3/uL (1.7-8.2); BASOPHILS % (AUTO) 1.2 % (0-2); EOSINOPHILS % (AUTO) 0.8 % (0-6); HEMATOCRIT 35.2 % (36.0-47.0); HEMOGLOBIN 11.6 g/dL (12.0-15.5); LYMPHOCYTES % (AUTO) 35.1 % (13-45); MEAN CORPUSCULAR HEMOGLOBIN 28.5 pg (27.0-33.4); MEAN CORPUSCULAR HGB CONC 32.9 g/dL (32.0-36.0); MEAN CORPUSCULAR VOLUME 87 fl (80-97); MONOCYTES % (AUTO) 9.2 % (3-13); PLATELET COUNT 314 10^3/uL (150-450); RED BLOOD COUNT 4.07 10^6/uL (3.72-5.28); RED CELL DISTRIBUTION WIDTH 17.9 % (11.5-14.0); SEGMENTED NEUTROPHILS % (AUTO) 53.7 % (42-78); TOTAL CELLS COUNTED % (AUTO) 100 %; WHITE BLOOD COUNT 7.2 10^3/uL (4.0-10.5)
[2017-07-24 10:24] LABS: APPEARANCE,URINE CLEAR; BILIRUBIN,URINE NEGATIVE (NEGATIVE); COLOR,URINE YELLOW; GLUCOSE, URINE NEGATIVE (NEGATIVE); KETONES,URINE NEGATIVE (NEGATIVE); LEUKOCYTE ESTERASE,URINE NEGATIVE (NEGATIVE); NITRITE,URINE NEGATIVE (NEGATIVE); PROTEIN,URINE NEGATIVE (NEGATIVE); URINE SPECIFIC GRAVITY 1.009; UROBILINOGEN,URINE NEGATIVE mg/dL (<2.0)
[2017-07-24 10:33] LABS: ALANINE AMINOTRANSFERASE 18 U/L (9-52); ALKALINE PHOSPHATASE 98 U/L (38-126); ANION GAP 9 (5-19); ASPARTATE AMINO TRANSFERASE 23 U/L (14-36); BILIRUBIN,DIRECT 0.3 mg/dL (0.0-0.4); BILIRUBIN,TOTAL 0.7 mg/dL (0.2-1.3); BLOOD UREA NITROGEN 12 mg/dL (7-20); CALCIUM 10.1 mg/dL (8.4-10.2); CARBON DIOXIDE 28 mmol/L (22-30); CHLORIDE 100 mmol/L (98-107); GLUCOSE 102 mg/dL (75-110); POTASSIUM 4.4 mmol/L (3.6-5.0); SODIUM 136.8 mmol/L (137-145); TOTAL PROTEIN 6.6 g/dL (6.3-8.2)
[2017-07-24 10:38] LABS: URINE AMPHETAMINES SCREEN NEGATIVE; URINE BARBITURATES SCREEN NEGATIVE; URINE BENZODIAZEPINES SCREEN NEGATIVE; URINE COCAINE SCREEN NEGATIVE; URINE MARIJUANA (THC) SCREEN NEGATIVE; URINE PHENCYCLIDINE SCREEN NEGATIVE
[2017-07-24 10:45] LABS: URINE METHADONE SCREEN NEGATIVE
--- NOTE | 2017-07-24 11:31 | RADIOLOGY REPORT (SQ) ---
EXAM DESCRIPTION: CT ABD/PELVIS WITH IV ONLY COMPLETED DATE/TIME: 07/24/2017 11:22 am REASON FOR STUDY: low abd pain COMPARISON: 04/09/2017 and 04/22/2014 TECHNIQUE: CT scan of the abdomen and pelvis performed using helical scanning technique with dynamic intravenous contrast injection. No oral contrast. Images reviewed with lung, soft tissue, and bone windows. Reconstructed coronal and sagittal MPR images reviewed. Delayed images for evaluation of the urinary system also acquired. All images stored on PACS. All CT scanners at this facility use dose modulation, iterative reconstruction, and/or weight based d osing when appropriate to reduce radiation dose to as low as reasonably achievable (ALARA). [facility]: Dose Right [facility]: CareDose [facility]: Dose Right [facility]: Teradose 4D [facility]: SocialGO CONTRAST TYPE AND DOSE: contrast/concentration: Isovue 370.00 mg/ml; Total Contrast Delivered: 81.0 ml; Total Saline Delivered: 68.0 ml RENAL FUNCTION: GFR > 60. RADIATION DOSE: CT Rad equipment meets quality standard of care and radiation dose reduction techniq ues were employed. CTDIvol: 9.7 - 13.8 mGy. DLP: 1256 mGy-cm.. LIMITATIONS: None. FINDINGS: LOWER CHEST: No significant findings. No nodules or infiltrates. LIVER: Normal size. No masses. No dilated ducts. SPLEEN: Normal size. No focal lesions. PANCREAS: No masses. No significant calcifications. No adjacent inflammation or peripancreatic fluid collections. Pancreatic duct not dilated. GALLBLADDER: Surgically absent. ADRENAL GLANDS: Stable 3.5 cm right adrenal mass. Otherwise normal. RIGHT KIDNEY AND URETER: No solid masses. No significant calcifications. No hydronephrosis or hyd roureter. LEFT KIDNEY AND URETER: No solid masses. No significant calcifications. No hydronephrosis or hydr oureter. AORTA AND VESSELS: No aneurysm. No dissection. Renal arteries, SMA, celiac without stenosis. RETROPERITONEUM: No retroperitoneal adenopathy, hemorrhage or masses. BOWEL AND PERITONEAL CAVITY: Scattered colonic diverticula. No masses or inflammatory changes. No fr ee fluid or peritoneal masses. APPENDIX: Surgically absent. PELVIS: No mass. No free fluid. Bladder decompressed with Silveira catheter. ABDOMINAL WALL: No masses. No hernias. BONES: Stable degenerative change with benign bone islands noted in the pelvis. No fracture or suspi cious osseous lesion. OTHER: No other significant finding. IMPRESSION: NO ACUTE FINDINGS IDENTIFIED ON THIS CONTRAST-ENHANCED CT OF THE ABDOMEN AND PELVIS. NO SIGNIFICANT CHANGE FROM PRIOR STUDY PER TECHNICAL DOCUMENTATION: JOB ID: [id number] Quality ID # [id number]: Final reports with documentation of one or more dose reduction techniques (e.g., Au tomated exposure control, adjustment of the mA and/or kV according to patient size, use of iterative reconstruction technique) 2010 [employer]- All Rights Reserved Reading location - IP/workstation name: [email or web address]
[2017-07-24] MEDS ORDERED: ACETAMINOPHEN 325 MG TABLET PO ONE (11:59)
[2017-07-24 12:10] VITALS: BP 138/63
== END 2017-07-24 12:12 | disposition home or self-care (01) ==
LOC: ER 08:15
DX: R10.2 Pelvic and perineal pain (principal); M54.5 Low back pain; R33.9 Retention of urine, unspecified; E78.00 Pure hypercholesterolemia, unspecified; G20 Parkinson's disease; Z86.718 Personal history of other venous thrombosis and embolism; Z90.49 Acquired absence of other specified parts of digestive tract; Z90.710 Acquired absence of both cervix and uterus
CPT/HCPCS: 99284; 51702; 36415; 87086; 83735; 85025; 80053; 81001; 80307; 74018; 74177; A9270

== ENCOUNTER 2018-08-12 23:25 | Emergency (ER) | payer MEDICARE ==
[2018-08-13] MEDS ORDERED: DIAZEPAM INJ 10 MG/2 ML DISP.SYRIN IV ONE (01:13)
--- NOTE | 2018-08-13 01:17 | ER Document Report ---
ED General - General Chief Complaint: Neck Pain >24hrs old Stated Complaint: NECK PAIN Time Seen by Provider: 08/13/18 01:06 Primary Care Provider: ROBB MILLARD MD [Primary Care Provider] - Follow up as needed Notes: Patient is a 72-year-old female presents with complaint of spasm in the right side of her neck. This been ongoing for a few days. She saw her primary care doctor today who placed her on baclofen and Flexeril. She says is not helping and she still has a lot of spasm into her neck. She does have a history of hypomagnesemia and hypokalemia. She says she has been taking her supplement magnesium. She has not had a magnesium or potassium levels checked recently. No fevers. No infections. No trauma to her neck. No weakness or numbness into her upper extremities. No other complaints at this time. TRAVEL OUTSIDE OF THE [place] IN LAST 30 DAYS: No - Related Data Allergies/Adverse Reactions: No Known Allergies Allergy (Verified 07/24/17 08:18) Past Medical History - Social History Smoking Status: Never Smoker Frequency of alcohol use: None Drug Abuse: None Family History: Reviewed & Not Pertinent - Past Medical History Cardiac Medical History: Reports: Hx DVT - Right lower extremity, Hx Hypercholesterolemia, Hx Hypertension Denies: Hx Congestive Heart Failure, Hx Heart Attack Pulmonary Medical History: Denies: Hx Asthma, Hx COPD Neurological Medical History: Denies: Hx Seizures Endocrine Medical History: Denies: Hx Diabetes Mellitus Type 1, Hx Diabetes Mellitus Type 2 Renal/ Medical History: Denies: Hx Peritoneal Dialysis GI Medical History: Reports: Hx Gastroesophageal Reflux Disease - Mild Musculoskeletal Medical History: Reports Hx Arthritis Psychiatric Medical History: Reports: Hx Depression Past Surgical History: Reports: Hx Cholecystectomy, Hx Hysterectomy, Hx Tonsillectomy - Immunizations Hx Diphtheria, Pertussis, Tetanus Vaccination: Yes Review of Systems - Review of Systems Notes: My Normal Review Basic REVIEW OF SYSTEMS: CONSTITUTIONAL : Denies fever, chills, or sweats. Denies recent illness. EENT: Denies eye, ear, throat, or mouth pain or symptoms. Denies nasal or sinus congestion. CARDIOVASCULAR: Denies chest pain. MUSCULOSKELETAL: Sided neck pain SKIN: Denies rash or skin lesions. NEUROLOGICAL: Denies sensory or motor loss. ALL OTHER SYSTEMS REVIEWED AND NEGATIVE. Physical Exam - Vital signs Vitals: Temp Pulse Resp BP Pulse Ox 97.9 F 75 20 153/88 H 95 08/13/18 00:08 08/13/18 00:08 08/13/18 00:08 08/13/18 00:08 08/13/18 00:08 - Notes Notes: General Appearance: Well nourished, alert, cooperative, no acute distress, no obvious discomfort. Vitals: reviewed, See vital signs table. Head: no swelling or tenderness to the head Eyes: PERRL, EOMI, Conjuctiva clear Neck: Supple, spasm over the right cervical paraspinal musculature. Pain to palpation of this area. Some pain going into the trapezius muscle. Patient is keeping head in a semi-flex position. She has pain whenever she tries to extend her neck. Extremities: strength 5/5 in upper extremities, good pulses in all extremities, no swelling or tenderness in the extremities, no edema. Skin: warm, dry, appropriate color, no rash Neuro: speech clear, oriented x 3, normal affect, responds appropriately to questions. Course - Re-evaluation Re-evalutation: 08/13/18 02:05 Patient is her neck spasm is improved. Magnesium level is low. Give her some magnesium. 08/13/18 03:17 Spasm was started come back a little bit but says still much improved from when she first arrived. I will give an oral dose of the Valium. I will discharge her home. We will give her magnesium due to hypomagnesemia. I informed her that she cannot take the baclofen or the cyclobenzaprine when taking the Valium. I encouraged her to follow-up with her doctor this week. Encouraged to return to ER if she has weakness or numbness in extremities, worsening pain, or if she feels unwell. I did not do any neck imaging as patient not had any trauma to her neck, she has no focal neurologic deficits, and she has pain to palpation t here is over the cervical paraspinal musculature and trapezius muscle and not over the midline of the neck. Dictation of this chart was performed using voice recognition software; therefore, there may be some unintended grammatical errors. - Vital Signs Vital signs: Temp Pulse Resp BP Pulse Ox 97.9 F 75 20 153/88 H 95 08/13/18 00:08 08/13/18 00:08 08/13/18 00:08 08/13/18 00:08 08/13/18 00:08 - Laboratory Result Diagrams: 08/13/18 01:15 Laboratory results interpreted by me: 08/13/18 01:15 Chloride 108 H BUN 29 H Magnesium 1.5 L Discharge - Discharge Clinical Impression: Neck pain, Muscle spasm, Hypomagnesemia Condition: Good Disposition: HOME, SELF-CARE Additional Instructions: I suspect the pain in your neck is related to muscle spasm in your neck. I did give you some magnesium as her magnesium level was low. The Valium did seem to help your spasm. I will prescribe you Valium. This medicine may make you little bit sleepy so do not drive and take her time when standing up or walking when you have taken the medicine. Do not take the baclofen or cyclobenzaprine when taking the Valium. They will interact with each other. Please follow-up with your doctor on Tuesday for reevaluation. Return to the ER if you have fevers, swelling of the neck, or worsening of your symptoms. Prescriptions: Diazepam [Valium 2 mg Tablet] 2 mg PO Q6HP PRN #15 tablet PRN Reason: spasm Referrals: ROBB MILLARD MD [Primary Care Provider] - 08/14/18
[2018-08-13 01:52] LABS: ANION GAP 8 (5-19); BLOOD UREA NITROGEN 29 mg/dL (7-20); CALCIUM 9.6 mg/dL (8.4-10.2); CARBON DIOXIDE 27 mmol/L (22-30); CHLORIDE 108 mmol/L (98-107); GLUCOSE 99 mg/dL (75-110); POTASSIUM 4.4 mmol/L (3.6-5.0); SODIUM 142.5 mmol/L (137-145)
[2018-08-13] MEDS ORDERED: MAGNESIUM SULFATE/D5W 1 GM/100 ML RTUPB IV ONE (02:04)
[2018-08-13] MEDS ORDERED: DIAZEPAM 2 MG TABLET PO ONE (03:11)
[2018-08-13 03:27] VITALS: BP 150/73
== END 2018-08-13 03:26 | disposition home or self-care (01) ==
LOC: ER 23:25
DX: E83.42 Hypomagnesemia (principal); M62.838 Other muscle spasm; M54.2 Cervicalgia; I10 Essential (primary) hypertension; Z79.899 Other long term (current) drug therapy
CPT/HCPCS: 36415; 83735; 80048; J3360; A9270; J3475; J3490

== ENCOUNTER → 2019-04-27 | Outpatient (CLI) | payer MEDICARE ==
--- NOTE | 2019-04-27 12:38 | WOMENS IMAGING REPORT ---
EXAM DESCRIPTION: 3D SCREENING MAMMO BILAT COMPLETED DATE/TIME: 04/27/2019 11:02 am REASON FOR STUDY: Z12.31 ENCOUNTER FOR SCREENING MAMMOGRAM FOR MALIGNANT NEOPLASM OF BREAST Z12.31 ENCNTR SCREEN MAMMOGRAM FOR MALIGNANT NEOPLASM OF GT COMPARISON: 2013 to 2016 EXAM PARAMETERS: Views: Standard craniocaudal and mediolateral oblique views of each breast recorded using digital acquisition and breast tomosynthesis. Read with the assistance of CAD. .[facility] [employer] Version 9.2 LIMITATIONS: None. FINDINGS: No suspicious masses, suspicious calcifications or architectural distortion. No areas of c oncern. IMPRESSION: NEGATIVE MAMMOGRAM. BIRADS 1. BREAST DENSITY: b. There are scattered areas of fibroglandular density. BIRAD: ASSESSMENT: 1 NEGATIVE RECOMMENDATION: ROUTINE SCREENING COMMENT: The patient has been notified of the results by letter per MQSA requirements. Additional no tification policies are in place for contacting patient with suspicious or incomplete findings. Quality ID #[id number]: The [employer] recommends an annual screening mammogram for women aged 40 years or over. This facility utilizes a reminder system to ensure that all patients receive reminder letters, and/or direct phone calls for appointments. This includes reminders for routine scr eening mammograms, diagnostic mammograms, or other Breast Imaging Interventions when appropriate. Th is patient will be placed in the appropriate reminder system. TECHNICAL DOCUMENTATION: FINDING NUMBER: (1) ASSESSMENT: (1) JOB ID: [id number] 2010 [employer]- All Rights Reserved Reading location - IP/workstation name: [email or web address]
== END ==
LOC: WI 09:50
PROVIDERS: ATTEND Family Medicine
DX: Z12.31 Encounter for screening mammogram for malignant neoplasm of breast (principal)
CPT/HCPCS: 77063; 77067

== ENCOUNTER 2019-05-05 20:27 | Emergency (ER) | payer MEDICARE ==
[2019-05-05 22:17] VITALS: BP 135/97
--- NOTE | 2019-05-05 22:24 | RADIOLOGY REPORT (SQ) ---
EXAM DESCRIPTION: XR SHOULDER 2 OR MORE VIEWS COMPLETED DATE/TME: 05/05/2019 00:00 CLINICAL HISTORY: 73 years, Female, tripped, fell on shoulder shoulder pain COMPARISON: None. NUMBER OF VIEWS: 3 TECHNIQUE: Right LIMITATIONS: None. FINDINGS: Acute nondisplaced fracture of the distal clavicle. Imaging degraded by motion. Glenohumeral joint demonstrates osteoarthritis. No other acute bony injury is seen. Chronic changes right hemithorax IMPRESSION: Imaging is degraded by patient motion, with resultant artifact. The best possible images were obtained. Apparent acute nondisplaced fracture of the distal clavicle. copyright 2010 [employer]- All Rights Reserved
[2019-05-05] MEDS ORDERED: HYDROCODONE/ACETAMINOPHEN 5-325 MG TABLET PO ONE (22:40)
[2019-05-05] MEDS ORDERED: ONDANSETRON 4 MG TAB.RAPDIS PO ONE (22:40)
--- NOTE | 2019-05-05 22:41 | ER Document Report ---
ED General - General Chief Complaint: Fall Injury Stated Complaint: SHOULDER INJURY Time Seen by Provider: 05/05/19 22:38 Primary Care Provider: ROBB MILLARD MD [Primary Care Provider] - Follow up as needed Information source: Patient, Relative Notes: Patient is a 73-year-old female presenting to the emergency department chief complaint of accidental fall. Patient states she tripped at about 7:30 PM this evening and landed on her right shoulder region. Patient states that any movement to the right upper extremity does cause pain in that area. Patient denies dizziness palpitations shortness of breath prior to the fall. 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 TRAVEL OUTSIDE OF THE [place] IN LAST 30 DAYS: No - HPI Onset: This evening Onset/Duration: Sudden Quality of pain: Throbbing Severity: Moderate Pain Level: 2 Associated symptoms: None Exacerbated by: Movement, Deep breathing Relieved by: Denies Similar symptoms previously: No Recently seen / treated by doctor: No - Related Data Allergies/Adverse Reactions: No Known Allergies Allergy (Verified 07/24/17 08:18) Past Medical History - General Information source: Patient, Relative - Social History Smoking Status: Never Smoker Chew tobacco use (# tins/day): No Frequency of alcohol use: None Drug Abuse: None Lives with: Spouse/Significant other Family History: Reviewed & Not Pertinent Patient has suicidal ideation: No Patient has homicidal ideation: No - Past Medical History Cardiac Medical History: Reports: Hx DVT - Right lower extremity, Hx Hypercholesterolemia, Hx Hypertension Denies: Hx Congestive Heart Failure, Hx Heart Attack Pulmonary Medical History: Denies: Hx Asthma, Hx COPD Neurological Medical History: Reports: Hx Parkinson's Disease. Denies: Hx Seizures Endocrine Medical History: Denies: Hx Diabetes Mellitus Type 1, Hx Diabetes Mellitus Type 2 Renal/ Medical History: Denies: Hx Peritoneal Dialysis GI Medical History: Reports: Hx Gastroesophageal Reflux Disease - Mild Musculoskeletal Medical History: Reports Hx Arthritis Psychiatric Medical History: Reports: Hx Depression Past Surgical History: Reports: Hx Cholecystectomy, Hx Hysterectomy, Hx Tonsillectomy - Immunizations Hx Diphtheria, Pertussis, Tetanus Vaccination: Yes Review of Systems - Review of Systems Notes: REVIEW OF SYSTEMS: CONSTITUTIONAL : Denies fever, chills, or sweats. Denies recent illness. EENT: Denies eye, ear, throat, or mouth pain or symptoms. Denies nasal or sinus congestion. CARDIOVASCULAR: Denies chest pain. RESPIRATORY: Denies cough, cold, or chest congestion. Denies shortness of breath, difficulty breathing, or wheezing. GASTROINTESTINAL: Denies abdominal pain. Denies nausea, vomiting, or diarrhea. Denies constipation. GENITOURINARY: Denies difficulty urinating, painful urination, burning, frequency, or blood in urine. MUSCULOSKELETAL: Per HPI SKIN: Denies rash or skin lesions. HEMATOLOGIC : Denies easy bruising or bleeding. NEUROLOGICAL: Denies altered mental status or loss of consciousness. Denies headache. Denies weakness or paralysis or loss of use of either side. Denies problems with gait or speech. Denies sensory or motor loss. PSYCHIATRIC: Denies suicidal or homicidal ideations 10 Systems are negative unless otherwise specified above Physical Exam - Vital signs Vitals: Pulse Ox 99 05/05/19 20:45 - Notes Notes: PHYSICAL EXAMINATION: GENERAL: Well-appearing, well-nourished and in no acute distress. HEAD: Atraumatic, normocephalic. EYES: Pupils equal round and reactive to light, extraocular movements intact, sclera anicteric, conjunctiva are normal. ENT: nares patent, oropharynx clear without exudates. Moist mucous membranes. NECK: Normal range of motion, supple without lymphadenopathy, no appreciable JVD LUNGS: Lungs clear to auscultation bilaterally and equal. No wheezes rales or rhonchi. HEART: Regular rate and rhythm without murmurs ABDOMEN: Soft, nontender, normal bowel sounds. No guarding, no rebound. No masses appreciated. EXTREMITIES: Active full range of motion x 3, exception being pain and limited range of motion to the right upper extremity pain at the distal end of the clavicle/shoulder junction, no pitting or edema. No cyanosis. 2+ pulses x4 NEUROLOGICAL: No focal neurological deficits. Moves all extremities spontaneously and on command. However patient also has parkinsonian movements. SKIN: Warm, Dry, and intact. Normal turgor, no rashes or lesions noted. Course - Re-evaluation Re-evalutation: 05/05/19 23:32 I discussed the radiologic results with patient and family patient will be placed in a sling for support patient had minimal relief with [place] tablet. Patient will be given prescription for [place] as well as [place] dispense pack also instructed to rest and ice the extremity also may take Motrin as needed for pain management. Patient will follow up with Dr. Junior orthopedics control valve technician. - Vital Signs Vital signs: Temp Pulse Resp BP Pulse Ox 97.7 F 27 H 135/97 H 100 05/05/19 20:49 05/05/19 21:01 05/05/19 22:06 05/05/19 22:06 - Diagnostic Test Radiology reviewed: Image reviewed, Reports reviewed Discharge - Discharge Clinical Impression: Accidental fall Qualifiers: Encounter type: initial encounter Qualified Code(s): W19.XXXA - Unspecified fall, initial encounter Closed fracture of distal clavicle Qualifiers: Encounter type: initial encounter Fracture alignment: nondisplaced Laterality: right Qualified Code(s): S42.034A - Nondisplaced fracture of lateral end of right clavicle, initial encounter for closed fracture Condition: Stable Disposition: HOME, SELF-CARE Additional Instructions: Fracture You have a fracture. The typical broken bone requires only protection and sufficient time for healing. "Setting" is necessary only if the bones are crooked or out of position. The physician will re-assess you periodically to make certain that the bone heals without complications. It's important that you follow the instructions given you. The initial treatment is immobilization, elevation of the injury, and cold packs. Not all fractures require a cast. Depending on the location and type of fracture, immobilization may consist of a splint, cast, sling, bulky dressing, or simply rest. The length of time required for healing depends on the location and type of fracture, and on the age of the patient. The treatment plan the physician has outlined for you is customized to your fracture and health condition. Call the doctor or return at once if pain becomes severe, or if severe swelling or numbness develop. Prescriptions: Hydrocodone/Acetaminophen [[place] 5-325 mg Tablet] 1 tab PO Q6 PRN #10 tablet PRN Reason: Referrals: ROBB MILLARD MD [Primary Care Provider] - Follow up as needed MICHELET JUNIOR MD [ACTIVE PROVISIONAL STAFF] - Follow up as needed
[2019-05-05] MEDS ORDERED: HYDROCODONE/ACETAMINOPHEN 5-325 MG (6 TAB/ER DISP) PO PRN (23:29)
== END 2019-05-05 23:59 | disposition home or self-care (01) ==
LOC: ER 20:27
DX: S42.034A Nondisplaced fracture of lateral end of right clavicle, initial encounter for closed fracture (principal); W01.190A Fall on same level from slipping, tripping and stumbling with subsequent striking against furniture, initial encounter; Y92.009 Unspecified place in unspecified non-institutional (private) residence as the place of occurrence of the external cause; I10 Essential (primary) hypertension; G20 Parkinson's disease
CPT/HCPCS: 99283; 73030; A9270 ×3; S0119

== ENCOUNTER 2019-06-12 21:31 | Inpatient (IN) | payer MEDICARE ==
[2019-06-12] MEDS ORDERED: DIPHENHYDRAMINE HCL 50 MG/ML VIAL IV ONE (21:35)
[2019-06-12] MEDS ORDERED: METOCLOPRAMIDE HCL INJ/PF 10 MG/2 ML SDV IV ONE (21:35)
[2019-06-12] MEDS ORDERED: NORMAL SALINE 1000 ML 1,000 ML IV ONE (21:35)
--- NOTE | 2019-06-12 21:42 | ER Document Report ---
ED General - General Chief Complaint: Nausea/Vomiting Stated Complaint: NAUSEA/ VOMITING Primary Care Provider: ROBB MILLARD MD [Primary Care Provider] - Follow up as needed Notes: 30 thoroughly with Parkinson's disease presents with vomiting. Vomiting for a whole day, Zofran prescribed by primary care is not working. Apparently had a UTI diagnosed based on an outpatient sample but did not get antibiotics. Worsening Parkinson symptoms in the setting of acute illness. Denies fever no diarrhea. Vital signs stable for EMS. TRAVEL OUTSIDE OF THE [place] IN LAST 30 DAYS: No - Related Data Allergies/Adverse Reactions: No Known Allergies Allergy (Verified 07/24/17 08:18) Past Medical History - Social History Smoking Status: Never Smoker Family History: Reviewed & Not Pertinent Patient has suicidal ideation: No Patient has homicidal ideation: No - Past Medical History Cardiac Medical History: Reports: Hx DVT - Right lower extremity, Hx Hypercholesterolemia, Hx Hypertension Denies: Hx Congestive Heart Failure, Hx Heart Attack Pulmonary Medical History: Denies: Hx Asthma, Hx COPD Neurological Medical History: Reports: Hx Parkinson's Disease. Denies: Hx Seizures Endocrine Medical History: Denies: Hx Diabetes Mellitus Type 1, Hx Diabetes Mellitus Type 2 Renal/ Medical History: Denies: Hx Peritoneal Dialysis GI Medical History: Reports: Hx Gastroesophageal Reflux Disease - Mild Musculoskeletal Medical History: Reports Hx Arthritis Psychiatric Medical History: Reports: Hx Depression Past Surgical History: Reports: Hx Cholecystectomy, Hx Hysterectomy, Hx Tonsillectomy - Immunizations Hx Diphtheria, Pertussis, Tetanus Vaccination: Yes Review of Systems - Review of Systems Notes: REVIEW OF SYSTEMS GEN: Denies fever, chills, weight loss ENT: Denies sore throat, nasal discharge, ear pain EYES: Denies blurry vision, eye pain, discharge CV: Denies chest pain, palpitations, edema RESP: Denies cough, shortness of breath, wheezing GI: Vomiting lower abdominal pain MSK: Denies joint pain/swelling, edema, SKIN: Denies rash, skin lesions LYMPH: Denies swollen glands/lymph nodes NEURO: Denies headache, focal weakness or numbness, dizziness PSYCH: Denies depression, suicidal or homicidal ideation PHYSICAL EXAMINATION General: No acute distress, well-nourished Head: Atraumatic, normocephalic ENT: Mouth normal, oropharynx moist, no exudates or tonsillar enlargement Eyes: Conjunctiva normal, pupils equal, lids normal Neck: No JVD, supple, no guarding CVS: Normal rate, regular rhythm, no murmurs Resp: No resp distress, equal and normal breath sounds bilaterally GI: Suprapubic tenderness, vomit on shirt bound or guarding Ext: No deformities, no edema, normal range of motion in upper and lower ext Back: No CVA or midline TTP Skin: No rash, warm Lymphatic: No lymphadeopathy noted Neuro: Uncontrolled tremor and hemiballismus baseline for patient Physical Exam - Vital signs Vitals: Pulse Resp BP Pulse Ox 89 28 H 188/150 H 95 06/12/19 21:36 06/12/19 21:36 06/12/19 21:36 06/12/19 21:36 Course - Re-evaluation Re-evalutation: 06/12/19 23:18 Elderly female with Parkinson's presents with refractory vomiting to outpatient medication and a likely UTI. She does have a borderline fever but not quite. She does not meet criteria for sepsis. We did labs and a culture. She is given fluids and multiple rounds of different antiemetics. Attempted to avoid dopaminergic agents, but was necessary to control the vomiting. Her urine is positive for infection with minimal blood so doubt stone. She was given IV Rocephin. On reassessment she said she is quite weak is dizzy when standing up and will need to be admitted for hydration. For some reason her base metabolic panel is not done and we will await this to check for severe JENNIFER. Would not be surprising in this situation. Discussed with Dr. Patten for admission. - Vital Signs Vital signs: Temp Pulse Resp BP Pulse Ox 99.2 F 89 28 H 188/150 H 95 06/12/19 21:44 06/12/19 21:36 06/12/19 21:36 06/12/19 21:36 06/12/19 21:36 - Laboratory Result Diagrams: 06/12/19 21:37 06/12/19 21:37 Laboratory results interpreted by me: 06/12/19 06/12/19 21:37 21:37 WBC 11.8 H RBC 3.54 L Hgb 10.4 L Hct 30.5 L Urine Protein 30 H Urine Ketones TRACE H Urine Blood SMALL H Ur Leukocyte Esterase MODERATE H Discharge - Discharge Clinical Impression: Pyelonephritis Condition: Fair Disposition: ADMITTED OBSERVATION Admitting Provider: Sandor (Hospitalist) Unit Admitted: Medical Floor Referrals: ROBB MILLARD MD [Primary Care Provider] - Follow up as needed
[2019-06-12 21:49] LABS: ABSOLUTE EOSINOPHILS # (AUTO) 0.1 10^3/uL (0.0-0.6); ABSOLUTE LYMPHOCYTES (AUTO) 2.6 10^3/uL (0.5-4.7); ABSOLUTE NEUT (AUTO) 8.1 10^3/uL (1.7-8.2); BASOPHILS % (AUTO) 0.4 % (0-2); EOSINOPHILS % (AUTO) 0.6 % (0-6); HEMATOCRIT 30.5 % (36.0-47.0); HEMOGLOBIN 10.4 g/dL (12.0-15.5); LYMPHOCYTES % (AUTO) 22.2 % (13-45); MEAN CORPUSCULAR HEMOGLOBIN 29.4 pg (27.0-33.4); MEAN CORPUSCULAR HGB CONC 34.2 g/dL (32.0-36.0); MEAN CORPUSCULAR VOLUME 86 fl (80-97); MONOCYTES % (AUTO) 8.5 % (3-13); PLATELET COUNT 253 10^3/uL (150-450); RED BLOOD COUNT 3.54 10^6/uL (3.72-5.28); SEGMENTED NEUTROPHILS % (AUTO) 68.3 % (42-78); TOTAL CELLS COUNTED % (AUTO) 100 %; WHITE BLOOD COUNT 11.8 10^3/uL (4.0-10.5)
[2019-06-12] MEDS ORDERED: ONDANSETRON HCL INJ/PF 4 MG/2 ML SDV ONE (22:14)
[2019-06-12 22:20] LABS: APPEARANCE,URINE SLIGHTLY-CLOUDY; BILIRUBIN,URINE NEGATIVE (NEGATIVE); COLOR,URINE YELLOW; GLUCOSE, URINE NEGATIVE (NEGATIVE); KETONES,URINE TRACE mg/dL (NEGATIVE); LEUKOCYTE ESTERASE,URINE MODERATE (NEGATIVE); NITRITE,URINE NEGATIVE (NEGATIVE); PROTEIN,URINE 30 mg/dL (NEGATIVE); URINE SPECIFIC GRAVITY 1.018; UROBILINOGEN,URINE NEGATIVE mg/dL (<2.0)
[2019-06-12] MEDS ORDERED: ONDANSETRON HCL INJ/PF 4 MG/2 ML SDV IV ONE (22:31)
[2019-06-12] MEDS ORDERED: CEFTRIAXONE 1 GM/D5W RTU 1 GM/50 ML RTUPB IV ONE (23:00)
[2019-06-12] MEDS ORDERED: ACETAMINOPHEN 325 MG TABLET PO PRN (23:20)
[2019-06-12] MEDS ORDERED: IPRATROPIUM/ALBUTEROL 0.5-2.5 MG/3 ML AMPUL NEB PRN (23:20)
[2019-06-12] MEDS ORDERED: MAG HYDROX/AL HYDROX/SIMETH SUSP 30 ML UDCUP PO PRN (23:20)
[2019-06-12] MEDS ORDERED: CARBIDOPA/LEVODOPA 25-100 MG TABLET PO ONE (23:30)
[2019-06-12 23:35] LABS: ANION GAP 5 (5-19); BLOOD UREA NITROGEN 15 mg/dL (7-20); CALCIUM 8.9 mg/dL (8.4-10.2); CARBON DIOXIDE 29 mmol/L (22-30); CHLORIDE 100 mmol/L (98-107); GLUCOSE 92 mg/dL (75-110); POTASSIUM 3.6 mmol/L (3.6-5.0)
[2019-06-12] MEDS: NORMAL SALINE 1000 ML 1,000 ML IV PRN (23:58)
[2019-06-13] MEDS: NORMAL SALINE 1000 ML 1,000 ML IV PRN (04:15)
[2019-06-13] MEDS: HEPARIN SOD (PORCINE) 5,000 UNIT/ML 1 ML VIAL SUBCUT SCH ×3 (05:36→21:49)
[2019-06-13] MEDS: CARBIDOPA/LEVODOPA 25-100 MG TABLET PO SCH ×4 (05:36→23:34)
[2019-06-13 05:42] LABS: ABSOLUTE LYMPHOCYTES (AUTO) 1.8 10^3/uL (0.5-4.7); ABSOLUTE MONOCYTES (AUTO) 0.5 10^3/uL (0.1-1.4); ABSOLUTE NEUT (AUTO) 4.7 10^3/uL (1.7-8.2); BASOPHILS % (AUTO) 0.4 % (0-2); EOSINOPHILS % (AUTO) 0.3 % (0-6); HEMATOCRIT 29.2 % (36.0-47.0); LYMPHOCYTES % (AUTO) 25.3 % (13-45); MEAN CORPUSCULAR HEMOGLOBIN 29.6 pg (27.0-33.4); MEAN CORPUSCULAR HGB CONC 34.3 g/dL (32.0-36.0); MEAN CORPUSCULAR VOLUME 86 fl (80-97); MONOCYTES % (AUTO) 7.5 % (3-13); PLATELET COUNT 190 10^3/uL (150-450); RED BLOOD COUNT 3.38 10^6/uL (3.72-5.28); RED CELL DISTRIBUTION WIDTH 14.3 % (11.5-14.0); SEGMENTED NEUTROPHILS % (AUTO) 66.5 % (42-78); TOTAL CELLS COUNTED % (AUTO) 100 %; WHITE BLOOD COUNT 7.1 10^3/uL (4.0-10.5)
--- NOTE | 2019-06-13 05:43 | PDOC H&P ---
History of Present Illness Admission Date/PCP: 06/12/19 23:31 ROBB MILLARD MD Patient complains of: Difficulty urinating History of Present Illness: ANNIE LAN is a 73 year old female with a past medical history of Parkinson's with debility, anemia and hypertension. She presents with 48 hours of suprapubic pain and difficulty urinating. She was diagnosed with urinary tract infection but unable to fill her prescription prompting her to seek evaluation emergency department where she is found to have leukocytosis, pyuria and a distended urinary bladder. She is treated with IV Rocephin and referred to the hospitalist for admission. Patient has persistent distention of the urinary bladder and a bladder scan is ordered. She denies recent urinary tract infection, nephrolithiasis or sharp abdominal or pelvic pain. She denies recent edition or discontinuation of medications. Her medication reconciliation is however unclear pending contact with her . Past Medical History Cardiac Medical History: Reports: DVT - Right lower extremity, Hyperlipidema, Hypertension Denies: Congestive Heart Failure, Myocardial Infarction Pulmonary Medical History: Denies: Asthma, Chronic Obstructive Pulmonary Disease (COPD) Neurological Medical History: Denies: Seizures Endocrine Medical History: Denies: Diabetes Mellitus Type 1, Diabetes Mellitus Type 2 GI Medical History: Reports: Gastroesophageal Reflux Disease - Mild Musculoskeltal Medical History: Reports: Arthritis Psychiatric Medical History: Reports: Depression Hematology: Reports: Anemia Past Surgical History Past Surgical History: Reports: Cholecystectomy, Hysterectomy, Tonsillectomy Social History Information Source: Patient Lives with: Spouse/Significant other Smoking Status: Never Smoker Electronic Cigarette use?: No Frequency of Alcohol Use: None Hx Recreational Drug Use: No Drugs: None Hx Prescription Drug Abuse: No - Advance Directive Resuscitation Status: Full Code Family History Family History: Hypertension Parental Family History Reviewed: Yes Children Family History Reviewed: Yes Sibling(s) Family History Reviewed.: Yes Medication/Allergy Home Medications: Amantadine HCl [Amantadine] 100 mg PO DAILY 04/22/14 Carbidopa/Levodopa [Carbidopa-Levodopa 10-100 Tab] 1 each PO HSP 04/22/14 Lisinopril 20 mg PO DAILY 04/22/14 Ropinirole HCl 6 tab PO DAILY 04/22/14 Simvastatin 10 mg PO DAILY 04/22/14 Pantoprazole Sodium [Protonix] 40 mg PO BID #60 tablet. 12/29/15 Amitriptyline HCl [Elavil 50 mg Tablet] 50 mg PO HSP 01/11/16 Carbidopa/Levodopa [Carbidopa-Levo 25-100 mg Odt] 6 tab PO DAILY 01/11/16 Carisoprodol 350 mg PO TID 01/11/16 Ferrous Sulfate [Feosol] 325 mg PO TID 01/11/16 Hydrochlorothiazide 12.5 mg PO DAILY 01/11/16 Ranitidine HCl 300 mg PO DAILY 01/11/16 Naproxen 500 mg PO Q12H #14 tablet 01/12/16 Loperamide HCl [Loperamide] 2 mg PO Q4 #30 capsule 04/10/17 Ondansetron [Zofran Odt 4 mg Tablet] 1 - 2 tab PO Q4H PRN #15 tab.rapdis 04/10/17 Magnesium Oxide [Mag-Ox 400 mg Tablet] 400 mg PO BID #10 tab 07/10/17 Lactulose 20 gm PO BID #120 ml 07/17/17 Sulfamethoxazole/Trimethoprim [Bactrim Ds Tablet] 1 each PO BID #20 tablet 07/17/17 Diazepam [Valium 2 mg Tablet] 2 mg PO Q6HP PRN #15 tablet 08/13/18 Hydrocodone/Acetaminophen [[place] 5-325 mg Tablet] 1 tab PO Q6 PRN #10 tablet 05/05/19 Allergies/Adverse Reactions: No Known Allergies Allergy (Verified 07/24/17 08:18) Review of Systems Constitutional: PRESENT: as per HPI, anorexia, fatigue, fever(s), weakness Eyes: ABSENT: visual disturbances Ears: ABSENT: hearing changes Cardiovascular: ABSENT: chest pain, dyspnea on exertion, edema, orthropnea, palpitations Respiratory: ABSENT: cough, hemoptysis Gastrointestinal: ABSENT: abdominal pain, constipation, diarrhea, hematemesis, hematochezia, nausea, vomiting Genitourinary: PRESENT: as per HPI, difficulty urinating. ABSENT: hematuria, nocturia Musculoskeletal: PRESENT: as per HPI, muscle weakness. ABSENT: joint swelling Integumentary: ABSENT: rash, wounds Neurological: PRESENT: as per HPI, weakness Psychiatric: ABSENT: anxiety, depression, homidical ideation, suicidal ideation Endocrine: ABSENT: cold intolerance, heat intolerance, polydipsia, polyuria Hematologic/Lymphatic: ABSENT: easy bleeding, easy bruising Physical Exam Vital Signs: Temp Pulse Resp BP Pulse Ox 98.2 F 82 22 H 153/63 H 100 06/13/19 01:21 06/13/19 02:00 06/13/19 01:21 06/13/19 01:21 06/13/19 01:21 Intake & Output 06/11/19 06/12/19 06/13/19 11:59 11:59 11:59 Intake Total 2050 Output Total 700 Balance 1350 Weight 71.9 kg General appearance: PRESENT: cooperative, mild distress, well-developed, well- nourished Head exam: PRESENT: atraumatic, normocephalic Eye exam: PRESENT: conjunctiva pink, EOMI, PERRLA. ABSENT: scleral icterus Ear exam: PRESENT: normal external ear exam Mouth exam: PRESENT: moist, tongue midline Neck exam: ABSENT: carotid bruit, JVD, lymphadenopathy, thyromegaly Respiratory exam: PRESENT: clear to auscultation janes. ABSENT: rales, rhonchi, wheezes Cardiovascular exam: PRESENT: RRR. ABSENT: diastolic murmur, rubs, systolic murmur Pulses: PRESENT: normal dorsalis pedis pul Vascular exam: PRESENT: normal capillary refill GI/Abdominal exam: PRESENT: normal bowel sounds, soft, tenderness - Suprapubic tenderness and distention.. ABSENT: distended, guarding, mass, organolmegaly, rebound Rectal exam: PRESENT: deferred Extremities exam: PRESENT: full ROM, +1 edema. ABSENT: calf tenderness, clubbing, pedal edema Neurological exam: PRESENT: alert, awake, oriented to person, oriented to place, oriented to time, oriented to situation, CN II-XII grossly intact. ABSENT: motor sensory deficit Psychiatric exam: PRESENT: appropriate affect, normal mood. ABSENT: homicidal ideation, suicidal ideation Skin exam: PRESENT: dry, intact, warm. ABSENT: cyanosis, rash Results Laboratory Results: 06/12/19 06/12/19 06/12/19 21:37 21:37 21:37 WBC 11.8 H RBC 3.54 L Hgb 10.4 L Hct 30.5 L MCV 86 MCH 29.4 MCHC 34.2 RDW 14.0 Plt Count 253 Seg Neutrophils % 68.3 Sodium 134.3 L Potassium 3.6 Chloride 100 Carbon Dioxide 29 Anion Gap 5 BUN 15 Creatinine 0.55 Est GFR ( Amer) > 60 Glucose 92 Lactic Acid Calcium 8.9 Urine Color YELLOW Urine Appearance SLIGHTLY-CLOUDY Urine pH 6.0 Ur Specific [place] 1.018 Urine Protein 30 H Urine Glucose (UA) NEGATIVE Urine Ketones TRACE H Urine Blood SMALL H Urine Nitrite NEGATIVE Ur Leukocyte Esterase MODERATE H Urine WBC (Auto) 153 Urine RBC (Auto) 4 06/12/19 21:57 WBC RBC Hgb Hct MCV MCH MCHC RDW Plt Count Seg Neutrophils % Sodium Potassium Chloride Carbon Dioxide Anion Gap BUN Creatinine Est GFR ( Amer) Glucose Lactic Acid 1.2 Calcium Urine Color Urine Appearance Urine pH Ur Specific [place] Urine Protein Urine Glucose (UA) Urine Ketones Urine Blood Urine Nitrite Ur Leukocyte Esterase Urine WBC (Auto) Urine RBC (Auto) Assessment and Plan - Diagnosis (1) Pyelonephritis Is this a current diagnosis for this admission?: Yes Plan: Complicated by suspected bladder outlet obstruction secondary to medication. IV fluid challenge, empiric antibiotics, bladder scan every 6 hours. Follow-up CBC, blood and urine culture. (2) Falls Is this a current diagnosis for this admission?: Yes Plan: Recent falls, follow-up physical therapy consult (3) Parkinsons Is this a current diagnosis for this admission?: Yes Plan: Empiric Sinemet ordered. Follow-up medication reconciliation (4) Anemia Qualifiers: Is this a current diagnosis for this admission?: Yes Plan: Likely iron deficient, follow-up anemia labs. - Inpatient Certification Medical Necessity: Need Close Monitoring Due to Risk of Patient Decompensation
[2019-06-13 05:56] LABS: ABSOLUTE RETICS # 0.036 10^6/uL (0.028-0.122); RETICULOCYTE COUNT (AUTO) 1.07 % (0.66-2.85)
[2019-06-13 05:57] LABS: IRON(TIBC) 36.9 ug/dL (37-170)
[2019-06-13 06:02] LABS: BLOOD UREA NITROGEN 10 mg/dL (7-20); CALCIUM 8.4 mg/dL (8.4-10.2); CARBON DIOXIDE 27 mmol/L (22-30); CHLORIDE 110 mmol/L (98-107); GLUCOSE 99 mg/dL (75-110); POTASSIUM 3.4 mmol/L (3.6-5.0)
[2019-06-13 06:06] LABS: ANION GAP 2 (5-19)
[2019-06-13 07:05] LABS: FOLATE 5.42 ng/mL (>2.76)
[2019-06-13] MEDS: CEFTRIAXONE 1 GM/D5W RTU 1 GM/50 ML RTUPB IV SCH (09:21)
[2019-06-13] MEDS: FERROUS SULFATE 325 MG TABLET PO SCH ×2 (09:21→17:35)
[2019-06-13] MEDS: ROPINIROLE HCL 1 MG TABLET PO SCH ×3 (12:14→19:46)
--- NOTE | 2019-06-13 12:34 | PDOC PROGRESS REPORT ---
Subjective Progress Note for:: 06/13/19 Subjective:: ANNIE LAN is a 73 year old female with a past medical history of Parkinson's with debility, anemia and hypertension admitted 06/12/2019 with UTI. Patient was seen on morning rounds. She was found sitting up to the recliner, comfortably, on room air. She reports continued abdominal/suprapubic pressure and urinary frequency. She denies hematuria and dysuria. She further denies fever, chills, chest pain, palpitations, dyspnea, orthopnea, cough, nausea vomiting and diarrhea. She has no questions or concerns at this time. No concerns per nursing. Reason For Visit: UTI, SIRS, PARKINSONS Physical Exam Vital Signs: Temp Pulse Resp BP Pulse Ox 98.5 F 70 16 155/61 H 97 06/13/19 11:28 06/13/19 11:28 06/13/19 11:28 06/13/19 11:28 06/13/19 11:28 Intake & Output 06/12/19 06/13/19 06/14/19 06:59 06:59 06:59 Intake Total 2050 1050 Output Total 1100 Balance 950 1050 Weight 71.9 kg General appearance: PRESENT: no acute distress, cooperative, well-developed, well-nourished Head exam: PRESENT: atraumatic, normocephalic Eye exam: PRESENT: conjunctiva pink, EOMI, PERRLA. ABSENT: scleral icterus Mouth exam: PRESENT: moist, tongue midline Respiratory exam: PRESENT: clear to auscultation janes, symmetrical, unlabored. ABSENT: rales, rhonchi, wheezes Cardiovascular exam: PRESENT: RRR, +S1, +S2. ABSENT: diastolic murmur, rubs, systolic murmur Pulses: PRESENT: normal dorsalis pedis pul Vascular exam: PRESENT: normal capillary refill GI/Abdominal exam: PRESENT: normal bowel sounds, soft. ABSENT: distended, guarding, mass, organolmegaly, rebound, tenderness Rectal exam: PRESENT: deferred Extremities exam: PRESENT: full ROM, pedal edema, +1 edema - BLE. ABSENT: calf tenderness, clubbing Neurological exam: PRESENT: alert, awake, oriented to person, oriented to place, oriented to time, oriented to situation, CN II-XII grossly intact. ABSENT: motor sensory deficit Psychiatric exam: PRESENT: appropriate affect, normal mood. ABSENT: homicidal ideation, suicidal ideation Skin exam: PRESENT: dry, intact, warm. ABSENT: cyanosis, rash Results Laboratory Results: 06/13/19 05:15 06/13/19 05:15 06/12/19 06/12/19 06/12/19 21:37 21:37 21:37 WBC 11.8 H RBC 3.54 L Hgb 10.4 L Hct 30.5 L MCV 86 MCH 29.4 MCHC 34.2 RDW 14.0 Plt Count 253 Seg Neutrophils % 68.3 Retic Count (auto) Sodium 134.3 L Potassium 3.6 Chloride 100 Carbon Dioxide 29 Anion Gap 5 BUN 15 Creatinine 0.55 Est GFR ( Amer) > 60 Glucose 92 Lactic Acid Calcium 8.9 Iron TIBC % Saturation Ferritin Vitamin B12 Folate Urine Color YELLOW Urine Appearance SLIGHTLY-CLOUDY Urine pH 6.0 Ur Specific [place] 1.018 Urine Protein 30 H Urine Glucose (UA) NEGATIVE Urine Ketones TRACE H Urine Blood SMALL H Urine Nitrite NEGATIVE Ur Leukocyte Esterase MODERATE H Urine WBC (Auto) 153 Urine RBC (Auto) 4 06/12/19 06/13/19 06/13/19 21:57 05:15 05:15 WBC 7.1 RBC 3.38 L Hgb 10.0 L Hct 29.2 L MCV 86 MCH 29.6 MCHC 34.3 RDW 14.3 H Plt Count 190 Seg Neutrophils % 66.5 Retic Count (auto) Sodium 139.2 Potassium 3.4 L Chloride 110 H Carbon Dioxide 27 Anion Gap 2 L BUN 10 Creatinine 0.57 Est GFR ( Amer) > 60 Glucose 99 Lactic Acid 1.2 Calcium 8.4 Iron TIBC % Saturation Ferritin Vitamin B12 Folate Urine Color Urine Appearance Urine pH Ur Specific [place] Urine Protein Urine Glucose (UA) Urine Ketones Urine Blood Urine Nitrite Ur Leukocyte Esterase Urine WBC (Auto) Urine RBC (Auto) 06/13/19 06/13/19 05:15 05:15 WBC RBC Hgb Hct MCV MCH MCHC RDW Plt Count Seg Neutrophils % Retic Count (auto) 1.07 Sodium Potassium Chloride Carbon Dioxide Anion Gap BUN Creatinine Est GFR ( Amer) Glucose Lactic Acid Calcium Iron 36.9 L TIBC 267 % Saturation 14 Ferritin 54.00 Vitamin B12 285.0 Folate 5.42 Urine Color Urine Appearance Urine pH Ur Specific [place] Urine Protein Urine Glucose (UA) Urine Ketones Urine Blood Urine Nitrite Ur Leukocyte Esterase Urine WBC (Auto) Urine RBC (Auto) Assessment and Plan - Diagnosis (1) Pyelonephritis Is this a current diagnosis for this admission?: Yes Plan: Blood and urine cultures pending. Patient is admitted to the medical floor. She is empirically placed on IV Rocephin. Received IV fluids overnight; now taking adequate p.o. Start Pyridium related to suprapubic discomfort. Monitor closely for urinary retention. Follow-up CBC and chemistry (2) Parkinsons Is this a current diagnosis for this admission?: Yes Plan: Continue home medication regimen with the exception of Amantadine r/t SE of urinary retention. May consider resuming Amantadine once urinary retention r/t UTI is resolved. Physical therapy. Fall precautions. (3) Falls Is this a current diagnosis for this admission?: Yes Plan: Recent falls Physical therapy consultation. Fall precautions. (4) HTN (hypertension) Qualifiers: Hypertension type: essential hypertension Qualified Code(s): I10 - Essential (primary) hypertension Is this a current diagnosis for this admission?: Yes Plan: Utilizes furosemide at home. Patient appears somewhat volume depleted today despite her BLE edema. Encourage p.o. fluids. Cardiac diet. IV hydralazine as needed for blood pressure control. Consider amlodipine. (5) Anemia Qualifiers: Anemia type: iron deficiency Is this a current diagnosis for this admission?: Yes Plan: Iron deficiency anemia. Hemoglobin is stable; no evidence of active bleeding at this time. Start ferrous sulfate with meals; do not take with Sinemet. - Time Time Spent with patient: 25-34 minutes Medications reviewed and adjusted accordingly: Yes Anticipated discharge: Home Within: within 24 hours
[2019-06-13] MEDS ORDERED: LEVODOPA PO SCH (13:00)
[2019-06-13] MEDS ORDERED: CARBIDOPA PO SCH (13:00)
[2019-06-13] MEDS: PHENAZOPYRIDINE HCL 100 MG TABLET PO SCH ×2 (14:27→21:49)
[2019-06-13] MEDS ORDERED: CARBIDOPA/LEVODOPA 10-100 MG TABLET PO SCH (22:00)
[2019-06-14 04:41] LABS: HEMATOCRIT 29.9 % (36.0-47.0); HEMOGLOBIN 10.3 g/dL (12.0-15.5); MEAN CORPUSCULAR HEMOGLOBIN 29.5 pg (27.0-33.4); MEAN CORPUSCULAR HGB CONC 34.4 g/dL (32.0-36.0); MEAN CORPUSCULAR VOLUME 86 fl (80-97); PLATELET COUNT 213 10^3/uL (150-450); RED BLOOD COUNT 3.49 10^6/uL (3.72-5.28); RED CELL DISTRIBUTION WIDTH 14.3 % (11.5-14.0); WHITE BLOOD COUNT 9.1 10^3/uL (4.0-10.5)
[2019-06-14 05:23] LABS: ANION GAP 7 (5-19); BLOOD UREA NITROGEN 7 mg/dL (7-20); CALCIUM 8.8 mg/dL (8.4-10.2); CARBON DIOXIDE 26 mmol/L (22-30); CHLORIDE 104 mmol/L (98-107); GLUCOSE 104 mg/dL (75-110); POTASSIUM 3.4 mmol/L (3.6-5.0)
[2019-06-14] MEDS: PHENAZOPYRIDINE HCL 100 MG TABLET PO SCH (06:08)
[2019-06-14] MEDS: ROPINIROLE HCL 1 MG TABLET PO SCH ×2 (06:08→09:12)
[2019-06-14] MEDS: CARBIDOPA/LEVODOPA 25-100 MG TABLET PO SCH ×2 (06:09→13:27)
[2019-06-14] MEDS: HEPARIN SOD (PORCINE) 5,000 UNIT/ML 1 ML VIAL SUBCUT SCH (06:09)
[2019-06-14] MEDS: CEFTRIAXONE 1 GM/D5W RTU 1 GM/50 ML RTUPB IV SCH (09:11)
[2019-06-14] MEDS: FERROUS SULFATE 325 MG TABLET PO SCH (09:12)
[2019-06-14] MEDS ORDERED: MAGNESIUM OXIDE 400 MG TABLET PO SCH (10:00)
[2019-06-14] MEDS ORDERED: (PENDING PHARMACY ID) (Magnesium Oxide [Magnesium] 500 MG) PO SCH (10:00)
[2019-06-14 12:10] VITALS: BP 136/54
--- NOTE | 2019-06-14 13:41 | PDOC DISCHARGE SUMMARY ---
Impression - Admit/DC Date/PCP Admission Date/Primary Care Provider: 06/12/19 23:31 ROBB MILLARD MD Discharge Date: 06/14/19 - Discharge Diagnosis (1) Pyelonephritis Is this a current diagnosis for this admission?: Yes (2) Parkinsons Is this a current diagnosis for this admission?: Yes (3) Falls Is this a current diagnosis for this admission?: Yes (4) HTN (hypertension) Is this a current diagnosis for this admission?: Yes (5) Anemia Is this a current diagnosis for this admission?: Yes - Additional Information Resuscitation Status: Full Code Discharge Diet: Cardiac Discharge Activity: Activity As Tolerated, Balance Activity w/Rest Referrals: ROBB MILLARD MD [Primary Care Provider] - 06/20/19 11:15 am Prescriptions: Cefdinir 300 mg PO BID #6 capsule Ferrous Sulfate [Feosol 325 mg Tablet] 325 mg PO BIDPCBS #60 tablet Phenazopyridine HCl [Pyridium 100 mg Tablet] 100 mg PO Q8 #12 tablet Home Medications: Carbidopa/Levodopa [Carbidopa-Levodopa 10-100 Tab] 1 each PO QHS 04/22/14 Ropinirole HCl 1 mg PO 5XD 04/22/14 Amantadine HCl [Amantadine] 100 mg PO Q12 06/13/19 Carbidopa/Levodopa [Rytary ER 48.75 mg-195 mg Cap] 1 each PO 5XD 06/13/19 Furosemide [Lasix 20 mg Tablet] 20 mg PO DAILY 06/13/19 Ibuprofen [Motrin 800 mg Tablet] 800 mg PO BIDP PRN 06/13/19 Magnesium Oxide [Magnesium] 500 mg PO DAILY 06/13/19 Acetaminophen [Tylenol 325 mg Tablet] 650 mg PO Q4HP PRN tablet 06/14/19 Cefdinir 300 mg PO BID #6 capsule 06/14/19 Ferrous Sulfate [Feosol 325 mg Tablet] 325 mg PO BIDPCBS #60 tablet 06/14/19 Phenazopyridine HCl [Pyridium 100 mg Tablet] 100 mg PO Q8 #12 tablet 06/14/19 History of Present Illiness History of Present Illness: Per H&P by Dr. Patten: ANNIE LAN is a 73 year old female with a past medical history of Parkinson's with debility, anemia and hypertension. She presents with 48 hours of suprapubic pain and difficulty urinating. She was diagnosed with urinary tract infection but unable to fill her prescription prompting her to seek evaluation emergency department where she is found to have leukocytosis, pyuria and a distended urinary bladder. She is treated with IV Rocephin and referred to the hospitalist for admission. Patient has persistent distention of the urinary bladder and a bladder scan is ordered. She denies recent urinary tract infection, nephrolithiasis or sharp abdominal or pelvic pain. She denies recent edition or discontinuation of medications. Her medication reconciliation is however unclear pending contact with her . Hospital Course Hospital Course: (1) Pyelonephritis Blood cultures are negative at 24 hours. Urine culture shoes gram negative rods; likely Proteus mirabilis after speaking with the micro lab. Patient was admitted to the medical floor. She is empirically placed on IV Rocephin and responded with rapid improvement. Start Pyridium related to suprapubic discomfort. She is discharged home in stable condition with home health services.. She is advised to complete her course of cefdinir. She is encouraged to follow-up with her primary care provider within 1 week and to return to the emergency department as needed for concerning symptoms. (2) Parkinsons Continue home medication regimen with the exception of Amantadine r/t SE of urinary retention. (3) Falls Physical therapy consulted; recommend home PT/OT services. Fall precautions. (4) HTN (hypertension) Resume home medication regimen. (5) Anemia Iron deficiency anemia. Hemoglobin is stable; no evidence of active bleeding at this time. Start ferrous sulfate with meals; do not take with Sinemet. Physical Exam Vital Signs: Temp Pulse Resp BP Pulse Ox 98.4 F 82 18 153/63 H 97 06/14/19 11:28 06/14/19 11:28 06/14/19 11:28 06/14/19 11:28 06/14/19 11:28 Intake & Output 06/13/19 06/14/19 06/15/19 06:59 06:59 06:59 Intake Total 2049 1530 Output Total 1100 1950 Balance 950 -420 Weight 71.9 kg 71.9 kg General appearance: PRESENT: no acute distress, well-developed, well-nourished Head exam: PRESENT: atraumatic, normocephalic Eye exam: PRESENT: conjunctiva pink, EOMI, PERRLA. ABSENT: scleral icterus Mouth exam: PRESENT: moist, tongue midline Respiratory exam: PRESENT: clear to auscultation janes, symmetrical, unlabored. ABSENT: rales, rhonchi, wheezes Cardiovascular exam: PRESENT: RRR, +S1, +S2. ABSENT: diastolic murmur, rubs, systolic murmur Pulses: PRESENT: normal dorsalis pedis pul Vascular exam: PRESENT: normal capillary refill GI/Abdominal exam: PRESENT: normal bowel sounds, soft. ABSENT: distended, guarding, mass, organolmegaly, rebound, tenderness Rectal exam: PRESENT: deferred Extremities exam: PRESENT: full ROM. ABSENT: calf tenderness, clubbing, pedal edema Musculoskeletal exam: PRESENT: ambulatory Neurological exam: PRESENT: alert, awake, oriented to person, oriented to place, oriented to time, oriented to situation, CN II-XII grossly intact. ABSENT: motor sensory deficit Psychiatric exam: PRESENT: flat affect, normal mood. ABSENT: homicidal ideation, suicidal ideation Skin exam: PRESENT: dry, intact, warm. ABSENT: cyanosis, rash Results Laboratory Results: WBC 9.1 10^3/uL (4.0-10.5) 06/14/19 04:18 RBC 3.49 10^6/uL (3.72-5.28) L 06/14/19 04:18 Hgb 10.3 g/dL (12.0-15.5) L 06/14/19 04:18 Hct 29.9 % (36.0-47.0) L 06/14/19 04:18 MCV 86 fl (80-97) 06/14/19 04:18 MCH 29.5 pg (27.0-33.4) 06/14/19 04:18 MCHC 34.4 g/dL (32.0-36.0) 06/14/19 04:18 RDW 14.3 % (11.5-14.0) H 06/14/19 04:18 Plt Count 213 10^3/uL (150-450) 06/14/19 04:18 Lymph % (Auto) 25.3 % (13-45) 06/13/19 05:15 [place] % (Auto) 7.5 % (3-13) 06/13/19 05:15 Eos % (Auto) 0.3 % (0-6) 06/13/19 05:15 Baso % (Auto) 0.4 % (0-2) 06/13/19 05:15 Reticulocyte # 0.036 10^6/uL (0.028-0.122) 06/13/19 05:15 Absolute Neuts (auto) 4.7 10^3/uL (1.7-8.2) 06/13/19 05:15 Absolute Lymphs (auto) 1.8 10^3/uL (0.5-4.7) 06/13/19 05:15 Absolute Monos (auto) 0.5 10^3/uL (0.1-1.4) 06/13/19 05:15 Absolute Eos (auto) 0.0 10^3/uL (0.0-0.6) 06/13/19 05:15 Absolute Basos (auto) 0.0 10^3/uL (0.0-0.2) 06/13/19 05:15 Seg Neutrophils % 66.5 % (42-78) 06/13/19 05:15 Retic Count (auto) 1.07 % (0.66-2.85) 06/13/19 05:15 Sodium 136.9 mmol/L (137-145) L 06/14/19 04:18 Potassium 3.4 mmol/L (3.6-5.0) L 06/14/19 04:18 Chloride 104 mmol/L (98-107) 06/14/19 04:18 Carbon Dioxide 26 mmol/L (22-30) 06/14/19 04:18 Anion Gap 7 (5-19) 06/14/19 04:18 BUN 7 mg/dL (7-20) 06/14/19 04:18 Creatinine 0.51 mg/dL (0.52-1.25) L 06/14/19 04:18 Est GFR ( Amer) > 60 (>60) 06/14/19 04:18 Est GFR (MDRD) Non-Af > 60 (>60) 06/14/19 04:18 Glucose 104 mg/dL (75-110) 06/14/19 04:18 Lactic Acid 1.2 mmol/L (0.7-2.1) 06/12/19 21:57 Calcium 8.8 mg/dL (8.4-10.2) 06/14/19 04:18 Iron 36.9 ug/dL (37-170) L 06/13/19 05:15 TIBC 267 ug/dL (250-450) 06/13/19 05:15 % Saturation 14 % 06/13/19 05:15 Ferritin 54.00 ng/mL (11.1-264.0) 06/13/19 05:15 Vitamin B12 285.0 pg/mL (239-931) 06/13/19 05:15 Folate 5.42 ng/mL (>2.76) 06/13/19 05:15 Urine Color YELLOW 06/12/19 21:37 Urine Appearance SLIGHTLY-CLOUDY 06/12/19 21:37 Urine pH 6.0 (5.0-9.0) 06/12/19 21:37 Ur Specific [place] 1.018 06/12/19 21:37 Urine Protein 30 mg/dL (NEGATIVE) H 06/12/19 21:37 Urine Glucose (UA) NEGATIVE mg/dL (NEGATIVE) 06/12/19 21:37 Urine Ketones TRACE mg/dL (NEGATIVE) H 06/12/19 21:37 Urine Blood SMALL (NEGATIVE) H 06/12/19 21:37 Urine Nitrite NEGATIVE (NEGATIVE) 06/12/19 21:37 Urine Bilirubin NEGATIVE (NEGATIVE) 06/12/19 21:37 Urine Urobilinogen NEGATIVE mg/dL (<2.0) 06/12/19 21:37 Ur Leukocyte Esterase MODERATE (NEGATIVE) H 06/12/19 21:37 Urine WBC (Auto) 153 /HPF 06/12/19 21:37 Urine RBC (Auto) 4 /HPF 06/12/19 21:37 U Hyaline Cast (Auto) 9 /LPF 06/12/19 21:37 Urine Bacteria (Auto) 3+ /HPF 06/12/19 21:37 Squamous Epi Cells Auto 2 /HPF 06/12/19 21:37 Urine Mucus (Auto) MANY /LPF 06/12/19 21:37 Urine Ascorbic Acid NEGATIVE (NEGATIVE) 06/12/19 21:37 Plan Plan of Treatment: Patient is discharged home in stable condition with home health services. She is advised to follow-up with her primary care provider within 1 week. Complete full course of antibiotic therapy. Take other medication as prescribed. Eat a heart healthy diet. Do NOT smoke. Return to emergency department as needed for concerning symptoms. Time Spent: Greater than 30 Minutes Stroke Is this a Stroke Patient?: No Acute Heart Failure - Is this a Heart Failure Patient?: No
== END 2019-06-14 13:25 | disposition home health service (06) | DRG 690 ==
LOC: ER 21:31 → EH 23:31 → 4S 06-13 01:09
PROVIDERS: ADMIT Internal Medicine; ATTEND Registered Nurse
DX: N12 Tubulo-interstitial nephritis, not specified as acute or chronic (principal); B96.4 Proteus (mirabilis) (morganii) as the cause of diseases classified elsewhere; I10 Essential (primary) hypertension; D50.9 Iron deficiency anemia, unspecified; G20 Parkinson's disease; K21.9 Gastro-esophageal reflux disease without esophagitis; M19.90 Unspecified osteoarthritis, unspecified site; F32.9 Major depressive disorder, single episode, unspecified; Z79.899 Other long term (current) drug therapy; Z86.718 Personal history of other venous thrombosis and embolism; Z90.49 Acquired absence of other specified parts of digestive tract; Z82.49 Family history of ischemic heart disease and other diseases of the circulatory system; Z91.81 History of falling
CPT/HCPCS: 36415; 80048; 81001; 82607; 82728; 82746; 83540; 83550; 83605; 85025; 85027; 85045; 87040; 87086; 87088; 87186; 96361; 96365; 96375; 99285; C1758; J0696; J1200; J1644; J2405; J2765; J3490; J7030